=== PATIENT | female | born 1950 | race Caucasian/White ===

== ENCOUNTER 2020-04-16 11:50 | Observation (INO) | payer MEDICARE, OTHER, SELFPAY ==
[2020-04-16] VITALS (10 sets, daily range): BP systolic 137–186; BP diastolic 57–92; PULSE 57–84; RESP 18; TEMP 36.7–36.9; O2SAT 94–100; BMI 32.3; BMI 32.4
--- NOTE | 2020-04-16 12:21 | CA_ITS ---
APPROVED REPORT Left Lower Extremity Venous Study for DVT. 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 Vein Imaging CFV (R): compressive, spontaneous, phasic, augmentation SFJ (R): compressive, spontaneous, phasic, augmentation FEM (R): compressive, spontaneous, phasic, augmentation POP (R): compressive, spontaneous, phasic, augmentation DFV (R): compressive, spontaneous, phasic, augmentation PTV (R): compressive, spontaneous, phasic, augmentation GSV (R): compressive, spontaneous, phasic, augmentation SSV (R): compressive, spontaneous, phasic, augmentation Peroneals (R):compressive, spontaneous, phasic, augmentation GAS (R): compressive, spontaneous, phasic, augmentation Findings LLE negative for DVT/SVT. Vessels compressible Conclusion LLE negative for DVT/SVT. Vessels compressible Electronically signed by : Salvador Goodrich MD 04/16/2020 15:39:41
--- NOTE | 2020-04-16 12:22 | PC.NURSE ---
notified CV lab of doppler order, spoke with ilsa
--- NOTE | 2020-04-16 13:04 | PC.NURSE ---
CV lab staff at
--- NOTE | 2020-04-16 13:30 | CT_ITS ---
Procedure: CT ANGIO LE BI CLINICAL HISTORY: purple or necrotic toe Post syndrome COMPARISON: No exams were available for comparison TECHNIQUE: IV Contrast: 100ml Optiray 350 Axial images obtained with sagittal and coronal reformats. All CT scans at the facility use one or more dose reduction, viz: automated exposure control, ma/kV adjustment per patient size (including targeted exams where dose is matched to indication, i.e. head), or iterative reconstruction technique. FINDINGS: There are atheromatous changes involving the abdominal aorta with mild dilatation the aorta at the L3 level measuring up to 2.4 cm. Is luminal irregularity from the atheromatous change. No significant stenosis of the common or external iliac arteries. Atheromatous changes are present. The left common femoral artery is unremarkable. There is occlusion of the proximal aspect of the left superficial femoral artery. The left femoral profundus is patent. No significant stenosis of the right superficial femoral artery or common femoral artery. There is reconstitution of the proximal aspect of the left proper popliteal artery with 3 vessel runoff on the left to the ankle. The runoff vessels on the right are not well demonstrated distally possibly due to the phase of contrast enhancement. Three-vessel runoff is present proximally in the right calf. Severe mild plaque is present at the ostium of the superior mesenteric artery with severe stenosis or occlusion of the proximal aspect of the SFA. There is a single right renal artery with 30 percent stenosis proximally from calcific plaque. Single left renal artery is unremarkable. The IVETTE is fairly prominent vessel. Collateral vessels noted from the IVETTE to the branches of the SMA. There is a small umbilical hernia containing fat. There is a moderate amount of retained colonic feces with colonic diverticulosis. Artifact is present from metallic fusion devices in the right SI joint. There are venous collaterals in the inguinal areas and gluteal region. IMPRESSION: 1. Occluded left superficial femoral artery with reconstitution of the proximal aspect of the left popliteal artery with three-vessel runoff to the ankle on the left 2. Mild dilatation of the abdominal aorta measuring up to 2.4 cm with some irregularity of the plaque within the aorta. 3. Severe stenosis versus occlusion of the SMA with collateral vessels from the IVETTE. Dictated by: Salvador Goodrich MD 04/16/2020 15:04 Salvador Goodrich MD in [place] 04/16/2020 15:04
[2020-04-16 13:59] LABS: Alanine Aminotransferase 28 U/L (12-78); Albumin Level 4.1 g/dl (3.5-5.0); Albumin/Globulin Ratio 1.4 (1.1-1.8); Alkaline Phosphatase 195 U/L (38-126); Anion Gap 10.7 mEq/L (5-15); Aspartate Amino Transferase 32 U/L (14-36); Bilirubin,Total 0.9 mg/dl (0.2-1.3); Blood Urea Nitrogen 8 mg/dl (7-17); Calcium 9.6 mg/dl (8.4-10.2); Carbon Dioxide 28 mmol/L (22.0-30.0); Chloride 103 mmol/L (98-107); Creatinine Clearance Estimated 78 mL/min (50-200); Estimated Glomerular Filt Rate 123 ml/min (>60); GFR (African American) 149 ML/MIN (>60); Glucose 128 mg/dl (74-100); Potassium 3.7 mmoL/L (3.5-5.1); Sodium 138 mmol/L (136-145); Total Protein,Serum 7.1 g/dl (6.3-8.2)
[2020-04-16 14:04] LABS: C-Reactive Protein 20.9 mg/L (0-4)
[2020-04-16 14:11] LABS: Basophils % 0.5 % (0.1-2.0); Eosinophils % 0.4 % (0.1-12.0); Hematocrit 44.7 % (37.0-47.0); Hemoglobin 14.8 g/dL (12.2-16.2); Lymphocytes # 1.8 K/mm3 (0.7-4.5); Lymphocytes % 21.6 % (10-50); Mean Corpuscular HGB Conc 33.2 g/dL (31.8-35.4); Mean Corpuscular Hemoglobin 32.7 pg (27.0-31.2); Mean Corpuscular Volume 98.3 fl (81-99); Mean Platelet Volume 7.7 fl (7.4-10.4); Monocytes # 0.4 K/mm3 (0.1-1.0); Monocytes % 4.9 % (1.7-9.3); Neutrophils % 72.6 % (37.0-80.0); Platelet Count 273 K/mm3 (142-424); Red Blood Count 4.54 M/mm3 (4.20-5.40); Red Cell Distribution Width 13.7 % (11.5-17.5); White Blood Count 8.3 K/mm3 (4.8-10.8)
[2020-04-16 14:19] LABS: Coronavirus 19 IgG Antibody Negative (Negative); Coronavirus 19 IgM Antibody Negative (Negative)
[2020-04-16 14:46] LABS: Erythrocyte Sedimentation Rate 35 mm/hr (0-30)
--- NOTE | 2020-04-16 14:51 | PC.NURSE ---
Follow up appointment made for tomorrow, 04/17/20 at 3:00pm, with Dr Pizarro, per Dr Ojeda request
--- NOTE | 2020-04-16 15:56 | PC.NURSE ---
Dr Pizarro paged.
--- NOTE | 2020-04-16 15:58 | PC.NURSE ---
Dr Pizarro returned call.
--- NOTE | 2020-04-16 16:04 | HMH.PHAHEP ---
[facility] Pharmacy Heparin Dosing - Demographic Data Admission date:: 04/16/20 Date: 04/16/20 Time: 16:04 Allergies/Adverse Reactions: Allergies Allergy/AdvReac Type Severity Reaction Status Date / Time Sulfa (Sulfonamide Allergy Intermediate Rash Verified 04/16/20 16:13 Antibiotics) diazepam Allergy Unknown Unknown Verified 04/16/20 16:13 allergy reaction sulfacetamide Allergy Unknown Unknown Verified 04/16/20 16:13 allergy reaction Height: 1.68 m Weight: 90.718 kg - Indication Medication therapy:: Heparin Patient Problems: Current Active Problems Femoral artery occlusion, left (Acute) Class 1 obesity with body mass index (BMI) of 32.0 to 32.9 in adult (Acute) HTN (hypertension) (Acute) CRP elevated (Acute) ESR raised (Acute) Ischemic ulcer of toe of left foot (Acute) Nail dystrophy (Acute) CVA?: No Bleeding problem?: No Kidney disease?: No IA?: No Desired PTT range:: 50-70 seconds Comments:: Occluded left superficial femoral artery Severe stenosis versus occlusion of the SMA with collateral vessels from the IVETTE. - Labs Anticoagulation Lab Results:: 04/16/20 13:40 Hgb 14.8 Hct 44.7 Plt Count 273 - Monitoring Dose Monitor 1 Date: 04/16/20 Time: 16:05 PTT Result:: PTT 25.8 Infusion Rate:: HEPARIN 1300 UNITS/HR (26 ML/HR) Comment:: HEPARIN 5000 UNIT IV BOLUS Dose Monitor 2 Date: 04/16/20 Time: 22:05 PTT Result:: PTT 40.2 Infusion Rate:: HEPARIN 1450 UNITS/HR (29 ML/HR) Dose Monitor 3 Date: 04/17/20 Time: 04:40 PTT Result:: PTT 49.5 Infusion Rate:: HEPARIN 1500 UNITS/HR (30 ML/HR) Dose Monitor 4 Date: 04/17/20 Time: 11:00 PTT Result:: PTT 47.7 Infusion Rate:: HEPARIN 1600 UNITS/HR (32 ML/HR) Comment:: PATIENT DOWN IN SECURITIES CLERK FOR RUN OFF X2. Dose Monitor 5 Date: 04/17/20 Time: 19:00 PTT Result:: PTT 54.6 Infusion Rate:: HEPARIN 1600 UNITS/HR (32 ML/HR) Comment:: PATIENT ALSO STARTED ON INTEGRILIN DRIP AT 5.6 ML/HR WITH 8.5 ML BOLUS FROM BOTTLE. Dose Monitor 6 Date: 04/18/20 Time: 02:00 PTT Result:: PTT 58.1 Infusion Rate:: HEPARIN 1600 UNITS/HR (32 ML/HR) + INTEGRILIN DRIP Dose Monitor 7 Date: 04/18/20 Time: 06:00 PTT Result:: PTT 59.9 Infusion Rate:: HEPARIN 1600 UNITS/HR (32 ML/HR) - Core Measures Is INR > or = 2 at discharge?: No Most Recent Labs:: Laboratory Results - last 24 hr 04/16/20 13:40: WBC 8.3, RBC 4.54, Hgb 14.8, Hct 44.7, MCV 98.3, MCH 32.7 H, MCHC 33.2, RDW 13.7, Plt Count 273, MPV 7.7, Neut % (Auto) 72.6, Lymph % (Auto) 21.6, Person % (Auto) 4.9, Eos % (Auto) 0.4, Baso % (Auto) 0.5, Neut # (Auto) 6.0, Lymph # (Auto) 1.8, Person # (Auto) 0.4, Eos # (Auto) 0.0, Baso # (Auto) 0.0 04/16/20 13:40: Sodium 138, Potassium 3.7, Chloride 103, Carbon Dioxide 28, Anion Gap 10.7, BUN 8, Creatinine 0.50 L, Estimated Creat Clear 78, Estimated GFR 123, Est GFR ( Amer) 149, Glucose 128 H, Calcium 9.6, Total Bilirubin 0.9, AST 32, ALT 28, Alkaline Phosphatase 195 H, C-Reactive Protein 20.9 H, Total Protein 7.1, Albumin 4.1, Globulin 3.0, Albumin/Globulin Ratio 1.4 04/16/20 13:40: ESR 35 H 04/16/20 13:40: SARS-CoV-2 IgG Ab (Rapid) Negative, SARS-CoV-2 IgM Ab (Rapid) Negative Were Heparin and Warfarin started on the same day?: No Comments:: HEPARIN STOPPED THIS AM ALONG WITH INTEGRILIN. WARFARIN NOT STARTED. PATIENT WILL BE DISCHARGE ON PLAVIX AND ASPIRIN ONLY PER MD NOTE.
--- NOTE | 2020-04-16 16:22 | PC.NURSE ---
Per Shaun Hunt, Pharmacy pt is to have a PTT drawn after 6 hours after heprin administration.
--- NOTE | 2020-04-16 16:29 | HMH.EDGENADL ---
ED Disposition Clinical Impression: Femoral artery occlusion, left Disposition: Admitted as Observation Condition on Discharge: Good - Critical Care Critical Care Time: No Attestation: On 04/16/20, the high probability of a clinically significant, sudden or life threatening deterioration of the following system(s) required my full and direct attention, intervention and personal management. The time I documented below is in addition to time spent performing reported procedures but includes the following listed in this critical care notation. Medical Decision Making - Medical Records Medical records reviewed: Yes: I reviewed the patient's medical records. - Gui Inquiry Pt receiving controlled substance: No Vital Signs: 04/16/20 12:02 04/16/20 12:40 04/16/20 14:43 Temperature 98.4 F Temperature Source Oral Pulse Rate [Right Radial] 83 77 58 L Respiratory Rate 18 Blood Pressure [Right Arm] 164/86 H 137/80 183/73 H Blood Pressure Mean [Right Arm] 112 99 109 Blood Pressure Source [Right Arm] Automatic Cuff Automatic Cuff Automatic Cuff Blood Pressure Position [Right Arm] Sitting Sitting Sitting 02 Sat by Pulse Oximetry 98 97 99 Oxygen Delivery Method Room Air Room Air Room Air 04/16/20 15:11 04/16/20 15:48 Temperature Temperature Source Pulse Rate [Right Radial] 58 L 58 L Respiratory Rate Blood Pressure [Right Arm] 168/72 H 143/71 H Blood Pressure Mean [Right Arm] 104 95 Blood Pressure Source [Right Arm] Automatic Cuff Automatic Cuff Blood Pressure Position [Right Arm] Sitting Sitting 02 Sat by Pulse Oximetry 99 99 Oxygen Delivery Method Room Air Room Air - Lab Data Lab results reviewed: Yes: I reviewed the patient's lab results. Lab Results 04/16/20 13:40: WBC 8.3, RBC 4.54, Hgb 14.8, Hct 44.7, MCV 98.3, MCH 32.7 H, MCHC 33.2, RDW 13.7, Plt Count 273, MPV 7.7, Neut % (Auto) 72.6, Lymph % (Auto) 21.6, Cole % (Auto) 4.9, Eos % (Auto) 0.4, Baso % (Auto) 0.5, Neut # (Auto) 6.0, Lymph # (Auto) 1.8, Cole # (Auto) 0.4, Eos # (Auto) 0.0, Baso # (Auto) 0.0 04/16/20 13:40: Sodium 138, Potassium 3.7, Chloride 103, Carbon Dioxide 28, Anion Gap 10.7, BUN 8, Creatinine 0.50 L, Estimated Creat Clear 78, Estimated GFR 123, Est GFR ( Amer) 149, Glucose 128 H, Calcium 9.6, Total Bilirubin 0.9, AST 32, ALT 28, Alkaline Phosphatase 195 H, C-Reactive Protein 20.9 H, Total Protein 7.1, Albumin 4.1, Globulin 3.0, Albumin/Globulin Ratio 1.4 04/16/20 13:40: ESR 35 H 04/16/20 13:40: SARS-CoV-2 IgG Ab (Rapid) Negative, SARS-CoV-2 IgM Ab (Rapid) Negative Result diagrams: 04/16/20 13:40 04/16/20 13:40 Orders (Tests/Meds): ED MEDICATIONS Generic Name Dose Route Start Last Admin Trade Name Freq PRN Reason Stop Dose Admin Heparin Sodium/Dextrose 500 mls @ 26 mls/hr 04/16/20 16:15 04/16/20 16:09 Heparin 25,000 Units In D5w 500ml Premix IV 05/16/20 16:14 26 mls/hr .[id number] SOCORRO Administration 1,300 UNITS/HR Sodium Chloride 10 ml 04/16/20 16:11 Saline Flush 10ml Syringe IV 05/16/20 16:10 NEEDED PRN Maintain IV Site Discontinued Medications Generic Name Dose Route Start Last Admin Trade Name Freq PRN Reason Stop Dose Admin Heparin Sodium (Porcine) 5,000 unit 04/16/20 16:15 04/16/20 16:09 Heparin Sodium 5,000 Units/Ml Vial IV 04/16/20 16:16 5,000 unit ONCE ONE Administration Ioversol 100 ml 04/16/20 14:32 04/16/20 14:32 Rad-Optiray 350 100ml Vial IV 04/16/20 14:33 100 ml ONCE ONE Administration Protocol Morphine Sulfate 4 mg 04/16/20 16:16 04/16/20 16:26 Morphine 4mg/Ml Syringe IV 04/16/20 16:17 4 mg ONCE ONE Administration Ondansetron HCl 4 mg 04/16/20 16:16 04/16/20 16:26 Zofran 4mg/2ml Vial IV 04/16/20 16:17 4 mg ONCE ONE Administration Sodium Chloride 10 ml 04/16/20 14:32 04/16/20 14:33 Rad-Saline Flush 10ml Syringe IV 04/16/20 14:33 10 ml ONCE ONE Administration Sodium Chloride 50 ml
--- NOTE | 2020-04-16 16:33 | PC.NURSE ---
CONSULTED WITH LARA ON HEPARIN GTT
[2020-04-16 16:58] LABS: Activated Partial Thrombo Time 25.8 seconds (23.6-34.0)
--- NOTE | 2020-04-16 17:00 | PC.NURSE ---
report called to kiara hernández rn on second floor
--- NOTE | 2020-04-16 17:43 | PC.NURSE ---
Pt arrived to the floor at this time.
--- NOTE | 2020-04-16 19:37 | PC.NURSE ---
L foot pedal pulse dopplered. Pulse faint but present. CB in reach. States pain improved. NAD at this time. Report given to Katie Hooks RN. Alert and oriented. IV changed to RAC and heparin gtt infusing 26 ml/hr.
[2020-04-16 22:38] LABS: Activated Partial Thrombo Time 40.2 seconds (23.6-34.0)
--- NOTE | 2020-04-16 22:39 | PC.NURSE ---
SPOKE WITH Magi POTTER, PHARMACIST IN REGARDS TO PTT RESULTS AND HEPARIN GTT. Magi POTTER INSTRUCTED THIS RN TO INCREASE RATE OF HEPARIN GTT TO 1450 UNITS/HR AND TO OBTAIN SCHEDULED PTT 6 HOURS FROM NOW.
[2020-04-17] VITALS (28 sets, daily range): BP systolic 124–186; BP diastolic 67–97; PULSE 50–77; RESP 15–20; TEMP 36.6–37.2; O2SAT 92–98; BMI 32.6; BMI 32.5
--- NOTE | 2020-04-17 | IR_ITS ---
APPROVED REPORT Patient Location: [facility] Physical Optics Teacher: DG Issa RT (R) PROCEDURES Right radial arterial access Catheter placement in the left superficial femoral artery Left superficial femoral artery angiography with unilateral runoff to the left foot INDICATION Suspected acute thrombosis, Cold left foot Informed consent was obtained prior to the procedure. COMPLICATIONS None Estimated Blood Loss: less than 10 ml TECHNIQUE 1% lidocaine used anesthetize the right anterior aspect of the right wrist. The right radial artery was accessed via the Salinger technique and a 6 Albanian hydrophilic sheath was placed in the right radial artery. An arterial cocktail was administered using heparin lidocaine verapamil and nitroglycerin. Under fluoroscopic guidance a PV multi-curve was advanced into the left superficial femoral artery where angiography was performed with unilateral runoff to the left foot. At the end of the procedure the apparatus was removed the sheath was removed and hemostasis was achieved using TR banding patient was transferred to the postop holding in stable condition ANGIOGRAPHIC RESULTS The left superficial femoral artery has a stent in the proximal segment. There appears to be a small concentric thrombus in its proximal segment. There is excellent stent apposition. The stent is widely patent into the popliteal artery. Distally there is three-vessel runoff. The anterior tibialis artery is smaller and appears to taper at the left foot with no clear-cut abrupt angulation suggesting thrombosis. The posterior tibialis artery does supply the left foot and the peroneal artery is patent just proximal to the left foot. IMPRESSION Small thrombus in the proximal superficial femoral artery Peripheral artery disease as described above PLAN 1. Start patient on Integrilin drip for the next 18 hours 2. Continue current therapy including low-dose heparin drip to be dosed by pharmacy Electronically signed by : Solo Pizarro, 04/17/2020 15:35:21
--- NOTE | 2020-04-17 | IR_ITS ---
APPROVED REPORT Patient Location: [facility] Contractor: DG Issa RT (R) PROCEDURES Catheter placement in the left popliteal artery Left popliteal artery selective antegrade angiogram Angioplasty and bare-metal stent deployment throughout the left superficial femoral artery and left popliteal artery INDICATION Acute left superficial femoral artery and left popliteal artery atherosclerosis/thrombosis, Cold left cyanotic left foot with limb threatening ischemia Informed consent was obtained prior to the procedure. COMPLICATIONS NONE Estimated Blood Loss: LESS THAN 10 ML TECHNIQUE 1% lidocaine used anesthetize the right groin the right femoral artery was accessed via the Salinger technique and a 6 Greenlandic sheath was placed in the right femoral artery. A wire was advanced into the abdominal aorta and the short 6 Greenlandic sheath was removed and a destination sheath was advanced along with a rim catheter. The rim catheter was used to cannulate the left common iliac artery and an advantage wire was advanced down into the profunda femoris artery. Under fluoroscopic guidance the sheath was advanced into the distal left common femoral artery. Left superficial femoral artery and left popliteal artery selective angiography was performed. Following this therapeutic heparin was administered and an advantage wire was advanced through the acute on chronic occlusion. A trailblazer catheter was then advanced into the popliteal artery the wire was removed and angiography was performed to demonstrate patency of the left popliteal artery. Following this a 6 mm x 150 mm self-expanding stent was deployed in the left popliteal artery extending into the superficial femoral artery. An additional 6 mm x 150 mm self-expanding EV 3 stent was deployed proximal to the first stent yet still overlapping it. An additional 7 mm x 120 mm EV 3 self-expanding stent was then placed proximal to the stent yet still overlapping it. This landed into the very proximal left superficial femoral artery. A 5 mm x 200 mm balloon was deployed at 1216 and then 20 luis up and down the popliteal artery and superficial femoral artery. A 6 mm x 20 mm balloon was then deployed at 16 luis in the very proximal portion of the left superficial femoral artery to further post dilate the stent. There were additional 14 luis inflations in the proximal SFA. After achieving excellent angiographic results the closing ACT was 272 seconds. The apparatus was removed the groin was reprepped gloves were changed sheath was removed there Perclose device was unable to capture the artery therefore manual pressure was initially held followed by a FemoStop. No hematoma occurred and excellent hemostasis was achieved. Patient was transferred to the postop holding in stable condition ANGIOGRAPHIC RESULTS The left superficial femoral artery is proximally occluded and occluded throughout the entire vessel and then reconstitutes at the mid popliteal artery at the pre-geniculate level. 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 Plavix and aspirin for 1 month then discontinue Plavix and add Xarelto 2.5 twice daily 2. LDL less than 55 3. Risk factor modification Electronically signed by : Solo Pizarro, 04/17/2020 13:25:35
--- NOTE | 2020-04-17 02:27 | PC.NURSE ---
A&OX3. ENGINEERING TECHNICIAN EQUAL BILAT. LUNGS CLEAR T/O AUSCULTATION. TOLERATED RA WELL THIS SHIFT. ABDOMEN NONDISTENDED, ACTIVE BOWEL SOUNDS, SOFT AND NONTENDER PER PALPATION IN ALL QUADS. PULSES +2 NOTED EXCEPT FOR ON LLE/LEFT FOOT SITES. PEDAL PULSE IS REQUIRING TO BE DETECTED PER DOPPLER T/O SHIFT. ON INITIAL ASSESSMENT LEFT FOOT WAS NOTED COOL PER PALPATION, PURPLE/ SARA COLORATION ON LEFT GREAT TOE. ON REASSESSMENT OF LEFT FOOT AND LEFT PEDAL PULSE THAT WAS PERFORMED AT 0220, LEFT FOOT NOTED WARM PER PALPATION, COLORATION REMAINS THE SAME INITIAL ASSESSMENT. CAP REFILL >3 SEC NOTED TO LEFT TOES (UNCHANGED FROM INITIAL ASSESSMENT.) BRUISING NOTED TO RIGHT HIP. PT HAS REPORTED PAIN THIS SHIFT IN RIGHT HIP AND LEFT FOOT/TOE. MEDICATED PT PER MAR WITH PRN MORPHINE, ON REASSESSMENT PT REPORTS PAIN BEING AT A TOLERABLE LEVEL. 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 PT REQUESTED STAFF TO OBTAIN URINE SAMPLE DUE TO URINE HAVING AN ODOR , URINE WAS NOTED CLEAR AND YELLOW. SAMPLE WAS OBTAINED AND LAB IS SAVING SPECIMEN IN CASE MD WOULD LIKE TO TEST URINE. AMBULATED TO AND FROM BATHROOM WITH SBA AND USE OF ROLLING WALKER, PT TOLERATED WELL. HEPARIN GTT TITRATED ACCORDING TO PHARMACY RECOMMENDATIONS THIS SHIFT, CURRENTLY INFUSING 29ML/HR. VSS. WILL CONTINUE TO MONITOR.
[2020-04-17 05:08] LABS: Activated Partial Thrombo Time 49.5 seconds (23.6-34.0)
--- NOTE | 2020-04-17 05:09 | PC.NURSE ---
Magi POTTER, PHARMACIST CALLED AND INSTRUCTED THIS RN TO INCREASE HEPARIN GTT TO 1500 UNITS/HR AND TO OBTAIN ANOTHER PTT LAB DRAW 6 HOURS FROM NOW. GTT INCREASED, ORDER PLACED FOR LAB DRAW AT 1100 ON 04/17.
--- NOTE | 2020-04-17 07:42 | HMH.PHAVTE ---
[facility] Pharmacy VTE Monitoring - Patient Demographics Admission date: 04/16/20 Report Date: 04/17/20 Time: 07:42 Allergies/Adverse Reactions: Patient Allergies Sulfa (Sulfonamide Antibiotics) Allergy (Intermediate, Verified 04/16/20 16:13) Rash diazepam Allergy (Unknown, Verified 04/16/20 16:13) Unknown allergy reaction sulfacetamide Allergy (Unknown, Verified 04/16/20 16:13) Unknown allergy reaction Height: 1.68 m Weight: 92.108 kg Patient Problems: Current Active Problems Femoral artery occlusion, left (Acute) - VTE Risk Labs: VTE Related Lab Results Hgb 14.8 g/dL (12.2-16.2) 04/16/20 13:40 Hct 44.7 % (37.0-47.0) 04/16/20 13:40 Plt Count 273 K/mm3 (142-424) 04/16/20 13:40 APTT 49.5 seconds (23.6-34.0) H D 04/17/20 04:40 BUN 8 mg/dl (7-17) 04/16/20 13:40 Creatinine 0.50 mg/dl (0.52-1.04) L 04/16/20 13:40 Estimated Creat Clear 78 mL/min (50-200) 04/16/20 13:40 Was VTE Risk Assessment Performed: Yes VTE Score: 3 VTE Risk Level: Low Risk Clinical Trial Participant: No - Prophylaxis VTE Prophylaxis Ordered?: Yes Types of VTE Prophylaxis: TEDS Knee High, Pharmacological Pharmacologic Type: Heparin
--- NOTE | 2020-04-17 08:04 | HMH.PHAINT ---
HOME MEDICATIONS RECONCILED FROM RX BOTTLES.
[2020-04-17 08:56] LABS: Basophils # 0.1 K/mm3 (0-0.2); Basophils % 0.7 % (0.1-2.0); Eosinophils # 0.1 K/mm3 (0.0-0.4); Eosinophils % 1.4 % (0.1-12.0); Hematocrit 44.8 % (37.0-47.0); Lymphocytes # 2.7 K/mm3 (0.7-4.5); Lymphocytes % 38.6 % (10-50); Mean Corpuscular HGB Conc 33.6 g/dL (31.8-35.4); Mean Corpuscular Volume 98.4 fl (81-99); Mean Platelet Volume 7.4 fl (7.4-10.4); Monocytes # 0.4 K/mm3 (0.1-1.0); Monocytes % 5.2 % (1.7-9.3); Neutrophils # 3.7 K/mm3 (1.8-7.8); Neutrophils % 54.2 % (37.0-80.0); Platelet Count 297 K/mm3 (142-424); Red Blood Count 4.55 M/mm3 (4.20-5.40); Red Cell Distribution Width 13.6 % (11.5-17.5); White Blood Count 6.9 K/mm3 (4.8-10.8)
--- NOTE | 2020-04-17 09:00 | HMH.HP ---
*Admission Date: 04/16/20 *History of present illness: 69-year-old female patient presented to the emergency department with left lower extremity pain, she does report a history of blood clots and believes that is her problem presently. She reports she was at [facility] in [place] for a surgical procedure involving a titanium plate placed in her pelvis to relieve her sciatic nerve pain. She states 4 days prior she began having a throbbing pain in her left foot pain has continued and increased to intolerable presently. In the emergency room pulses on left foot were present with Doppler only and left great toe was purplish in color. She denies fever/body aches/chills, shortness of breath, N/V/D, or chest pain. Heparin drip was started in ED CBC unremarkable, BUN 8, creatinine 0.5, ESR 35, phosphate 195, C-reactive protein 20.9 Extremity Doppler 04/16/2020: Conclusion LLE negative for DVT/SVT. Vessels compressible Left lower extremity CTA 04/16/2020: FINDINGS: There are atheromatous changes involving the abdominal aorta with mild dilatation the aorta at the L3 level measuring up to 2.4 cm. Is luminal irregularity from the atheromatous change. No significant stenosis of the common or external iliac arteries. Atheromatous changes are present. The left common femoral artery is unremarkable. There is occlusion of the proximal aspect of the left superficial femoral artery. The left femoral profundus is patent. No significant stenosis of the right superficial femoral artery or common femoral artery. There is reconstitution of the proximal aspect of the left proper popliteal artery with 3 vessel runoff on the left to the ankle. The runoff vessels on the right are not well demonstrated distally possibly due to the phase of contrast enhancement. Three-vessel runoff is present proximally in the right calf. Severe mild plaque is present at the ostium of the superior mesenteric artery with severe stenosis or occlusion of the proximal aspect of the SFA. There is a single right renal artery with 30 percent stenosis proximally from calcific plaque. Single left renal artery is unremarkable. The IVETTE is fairly prominent vessel. Collateral vessels noted from the IVETTE to the branches of the SMA. There is a small umbilical hernia containing fat. There is a moderate amount of retained colonic feces with colonic diverticulosis. Artifact is present from metallic fusion devices in the right SI joint. There are venous collaterals in the inguinal areas and gluteal region. IMPRESSION: 1. Occluded left superficial femoral artery with reconstitution of the proximal aspect of the left popliteal artery with three-vessel runoff to the ankle on the left 2. Mild dilatation of the abdominal aorta measuring up to 2.4 cm with some irregularity of the plaque within the aorta. 3. Severe stenosis versus occlusion of the SMA with collateral vessels from the IVETTE. Dictated by: Kp, Presently she is lying in bed respirations easy even she denies any shortness of breath or chest pain. Left pedal pulses obtained with Doppler, left great toe is purplish in color and painful to touch. Cardiology consult [facility] History Medical History: Reports:: Hypertension Denies:: Diabetes Mellitus Type 1, Diabetes Mellitus Type 2, MRSA *Have you ever received a pneumonia vaccine?: Yes *Have you received a flu vaccine this season?: No Other Surgeries: Yes: Cholecystectomy, Hysterectomy-Total - *Social History Last grade of school completed: Some college Smoking Status: Former smoker # Packs/Day (cigarettes): 1 #Yrs smoked (if former smoker): 45 Alcohol Intake: never Alcohol Intake Frequency:: holidays/special occasions only Substance Use Type: denies use *Occupational Status:: retired, disabled *Travel in the last 8 weeks: None Family Hx:: No significant family history Review of Systems - Review of Systems Review of systems:: pertinent
[2020-04-17 09:09] LABS: Chloride 105 mmol/L (98-107); Sodium 139 mmol/L (136-145)
[2020-04-17 09:13] LABS: Blood Urea Nitrogen 8 mg/dl (7-17); Calcium 9.6 mg/dl (8.4-10.2); Carbon Dioxide 27 mmol/L (22.0-30.0); Creatinine Clearance Estimated 79 mL/min (50-200); Estimated Glomerular Filt Rate 123 ml/min (>60); GFR (African American) 149 ML/MIN (>60); Glucose 118 mg/dl (74-100)
[2020-04-17 11:20] LABS: Activated Partial Thrombo Time 47.7 seconds (23.6-34.0)
--- NOTE | 2020-04-17 11:45 | PC.NURSE ---
Pt down to labview programmer at approx 1115. Pt is alert and oriented and able to make need known. RR even and unlabored. Did change dsg to R hip this am after cleaning to surg incision. No s/s infection. Did doppler L pedal pulse, r/t unable to palpate this am. Toe continues to be discolored, cool and tender to touch. Awaiting return to floor at this time. Heparin gtt per oct continued prior to labview programmer.
--- NOTE | 2020-04-17 12:03 | HMH.CNCARD ---
History of Present Illness Consult date: 04/17/20 Requesting physician: Sam Ojeda Chief complaint: Occlusion of the left femoral artery Additional Medical History:: 1. Occluded left SFA with reconstitution of the proximal aspect of the left popliteal artery with three-vessel runoff to the ankle on the left. (04/17/2020) a. Complains of left foot pain. b. Discoloration of the left foot. 2. Hypertension a. Pt stated that she does not take medication regularly. 3. History of DVT (2008) 4. History of tobacco abuse a. Quit smoking 3 weeks ago. History of present illness: 69 year old female admitted to [facility] for Occluded left superficial femoral artery. Pt stated that for the past few days she has been having increase severe pain of the left leg radiating down to the foot. Left great toe noted with purple discoloration. One week ago, pt underwent a procedure at [facility] in [place], [place] to have titanium patch across the sciatic nerve to help alleivate the sciatic nerve pain. Pt denies chest pain, tightness or pressure. Denies shortness of breath. No swelling of the lower extremities. Pt stated limited movement of the left leg and foot due to severe pain. Pt does have history of Hypertension. History of DVT (2008). Ex tobacco user. Quit smoking 3 weeks ago. Initial ED workup was performed. CBC unremarkable. Creatinine 0.50, C-Reactive protein 20.9, and ESR 35 (elevated). CTA of LE BI was performed. CTA revealed occluded left superficial artery with reconstitution of the proximal aspect of the left popliteal artery with three-vessel runoff to the ankle of the left. Pt is on a Heparin drip. Discussed plan of care with pt. Recommended Bilateral lower extremity runoff be performed due to the occlusion of the left SFA. Explained the risk and benefits of the runoff. Pt agreeable. Discussed case with Dr. Pizarro. Thank you for letting Cardiology participate in the care of this pt. [facility] History I have reviewed the patient's past medical history: Yes Medical History: Reports:: Hypertension Denies:: Diabetes Mellitus Type 1, Diabetes Mellitus Type 2, MRSA *Have you ever received a pneumonia vaccine?: Yes *Have you received a flu vaccine this season?: No Other Surgeries: Yes: Cholecystectomy, Hysterectomy-Total - *Social History Last grade of school completed: Some college Smoking Status: Former smoker # Packs/Day (cigarettes): 1 #Yrs smoked (if former smoker): 45 Alcohol Intake: never Alcohol Intake Frequency:: holidays/special occasions only Substance Use Type: denies use *Occupational Status:: retired, disabled *Travel in the last 8 weeks: None Family Hx:: No significant family history Meds Home Medications Medication Instructions Recorded Confirmed Type Amlodipine Besylate [Amlodipine 5 mg PO BID 04/16/20 04/17/20 History 10mg Tab] Cyclobenzaprine HCl 10 mg PO BID PRN 04/16/20 04/17/20 History [Cyclobenzaprine 10mg Tab] Hydrocodone/Acetaminophen 1 tab PO TID PRN 04/16/20 04/17/20 History [Hydrocodone-Acetamin 10-325 mg] Allergies Allergy/AdvReac Type Severity Reaction Status Date / Time Sulfa (Sulfonamide Allergy Intermediate Rash Verified 04/16/20 16:13 Antibiotics) diazepam Allergy Unknown Unknown Verified 04/16/20 16:13 allergy reaction sulfacetamide Allergy Unknown Unknown Verified 04/16/20 16:13 allergy reaction Exam Vital signs and Labs for Last 24 Hours: Temp Pulse Resp BP Pulse Ox 97.9 F 60 20 139/97 H 97 04/17/20 07:19 04/17/20 07:19 04/17/20 07:19 04/17/20 07:19 04/17/20 07:19 Laboratory Results - last 24 hr 04/16/20 13:40: WBC 8.3, RBC 4.54, Hgb 14.8, Hct 44.7, MCV 98.3, MCH 32.7 H, MCHC 33.2, RDW 13.7, Plt Count 273, MPV 7.7, Neut % (Auto) 72.6, Lymph % (Auto) 21.6, [place] % (Auto) 4.9, Eos % (Auto) 0.4, Baso % (Auto) 0.5, Neut # (Auto) 6.0, Lymph # (Auto) 1.8, [place] # (Auto) 0.4, Eos # (Auto) 0.0, Baso # (Auto) 0.0 04/16/20 13:4
[2020-04-17 14:33] LABS: Microscopic, Urine URINE MICROSCOPIC (MICROSCOPIC)
[2020-04-17 14:37] LABS: Appearance,Urine CLEAR (Clear); Bilirubin,Urine Negative (Negative); Blood, Urine Negative (Negative); Color,Urine YELLOW (Yellow); Glucose,Urine (UA) Negative (Negative); Ketones,Urine Negative (Negative); Leukocyte Esterase,Urine Negative (Negative); Nitrate,Urine Negative (Negative); PH,Urine 6.5 (5.0-8.5); Protein,Urine Negative (Negative); Specific Gravity, Urine <= 1.005 (1.005-1.030); Urobilinogen,Urine 0.2 EU/dl (0.2)
[2020-04-17 14:48] LABS: Squamous Epithelial Cell,Urine Occasional #/hpf (0-5)
--- NOTE | 2020-04-17 16:03 | SUR.PHASEII ---
pt doing well after 2nd procedure. stable, no issues.
--- NOTE | 2020-04-17 16:09 | PC.NURSE ---
Addendum entered by Santiago Robertson RN 04/17/20 16:10: Pt still in phlebotomy lab assistant at this time. Original Note: Have given report to Raina Kaminski RN.
[2020-04-17 16:32] LABS: CATHL Activated Clotting Time 272 SEC (74-125)
--- NOTE | 2020-04-17 17:01 | PC.NURSE ---
per laborer carpentry dock, they ordered per protocol for integralin drip.
--- NOTE | 2020-04-17 19:04 | PC.NURSE ---
report given to bharat
[2020-04-17 19:37] LABS: Activated Partial Thrombo Time 54.6 seconds (23.6-34.0)
--- NOTE | 2020-04-17 19:46 | PC.NURSE ---
INSTRUCTED PER Magi POTTER, PHARMACIST TO KEEP THE HEPARIN AT CURRENT DOSE R/T PTT RESULTS. HEPARIN IS INFUSING AT 32 ML/HR.
[2020-04-18] VITALS (15 sets, daily range): BP systolic 103–169; BP diastolic 58–95; PULSE 54–90; RESP 16–18; TEMP 36.7–36.9; O2SAT 91–99; BMI 32.5
--- NOTE | 2020-04-18 01:00 | PC.NURSE ---
INTEGRILIN GTT STOPPED AT THIS TIME PER MD INSTRUCTIONS.
[2020-04-18 02:21] LABS: Activated Partial Thrombo Time 58.1 seconds (23.6-34.0)
--- NOTE | 2020-04-18 02:22 | PC.NURSE ---
Magi POTTER, PHARMACIST CALLED THIS RN AND INSTRUCTED TO KEEP HEPARIN GTT AT THE CURRENT RATE THAT IT IS INFUSING R/T PTT LAB RESULTS. 32ML/HR INFUSING.
--- NOTE | 2020-04-18 04:26 | PC.NURSE ---
A&OX3. OPERATIONS RESEARCH SCIENTIST EQUAL BILAT. LUNGS NOTED CLEAR T/O AUSCULTATION. TOLERATED RA WELL. ABDOMEN NOTED NONDISTENDED, ACTIVE BOWEL SOUNDS IN ALL QUADS, SOFT AND NONTENDER ABDOMEN. PT DID REQUEST STOOL SOFTNER AT 0313 THIS MORNING, REASSURED PT THAT WOULD BE ADDRESSED ON MORNING ROUNDS. PULSES +2. RIGHT RADIAL TRACELET HAS REMAINED ON THIS SHIFT R/T UNSUCCESSFUL ATTEMPTS OF REMOVAL. ON THE 15 MIN REASSESSMENTS OF ATTEMPTING TO DEFLATE AIR FROM TRACELET, BLOODY OOZING/TRICKLING NOTED TO RIGHT RADIAL SITE, PER INSTRUCTIONS 4ML REINFLATED THE TRACELET. MD WAS MADE AWARE AT 0056 AND INSTRUCTED TO HOLD INTEGRILIN GTT FOR 5 HOURS AND TO LEAVE THE TRACELET FOR 4 MORE HOURS, THEN ATTEMPT TO REMOVE. WILL ATTEMPT TO DEFLATE TRACELET AND BEGIN REMOVAL PROCESS AT 0500. RIGHT HAND HAS REMAINED WARM PER PALPATION, CAP REFILL <3 SEC, RIGHT HAND PINK IN COLORATION. RIGHT FEMORAL SITE NOTED WITH WITH A DRESSING WITH MINIMAL DRIED BLOOD THAT WAS UNCHANGED FROM DAY SHIFT, SOFT PER PALPATION, FREE FROM HEMATOMA. LEFT FOOT NOTED WITH SARA DISCOLORATION LEFT GREAT TOE NOTED PURPLE IN COLOR, LEFT FOOT REMAINED WARM PER PALPATION, PEDAL PULSES PALPABLE +2. SINUS ARRHYTHMIA NOTED PER PURCHASING BUYER, WAS TOLD IN REPORT THAT PT HAS REMAINED IN SINUS ARRHYTHMIA SINCE ARRIVAL TO FLOOR FROM MAITRE D'. RIGHT HIP/ RIGHT LOWER PORTION OF BACK NOTED WITH BRUISING, REPORTS PREVIOUS HIP SURGERY. PT REPORTED HAVING LOWER BACK PAIN, DESCRIBED A THROBBING PAIN. DENIED PAIN BEING A DIFFERENT KIND OF PAIN, PT REPORTED NO IT IS THROBBING AND ACHING LIKE IT HAS BEEN. WITH REPOSITIONING AND ADMINISTRATION OF PRN PAIN MEDICATIONS PT REPORTS PAIN IS TOLERABLE OR NOTED RESTING WITH EYES CLOSED . PAIN GOAL IS TO MAINTAIN PAIN LEVEL <5/10 ON 0-10 CUSTOMER SUPPORT AGENT. COOMBS CATHETER IN PLACE PATENT AND DRAINING CLEAR YELLOW URINE. AKASH AREA CDI, NO S/S OF INFECTION NOTED. ADEQUATE UO NOTED. VSS. WILL CONTINUE TO MONITOR.
[2020-04-18 06:34] LABS: Hematocrit 41.9 % (37.0-47.0); Hemoglobin 14.1 g/dL (12.2-16.2)
[2020-04-18 06:41] LABS: Chloride 103 mmol/L (98-107); Potassium 3.6 mmoL/L (3.5-5.1); Sodium 135 mmol/L (136-145)
[2020-04-18 06:44] LABS: Anion Gap 8.6 mEq/L (5-15); Blood Urea Nitrogen 8 mg/dl (7-17); Calcium 9.2 mg/dl (8.4-10.2); Carbon Dioxide 27 mmol/L (22.0-30.0); Creatinine Clearance Estimated 79 mL/min (50-200); Estimated Glomerular Filt Rate 100 ml/min (>60); GFR (African American) 121 ML/MIN (>60); Glucose 113 mg/dl (74-100)
[2020-04-18 07:01] LABS: Activated Partial Thrombo Time 59.9 seconds (23.6-34.0)
--- NOTE | 2020-04-18 07:37 | HMH.PNCARD ---
Subjective Date: 04/18/20 Time: 07:37 Principal diagnosis: Acute SFA occlusion Interval history: 69 yo WF in bed in NAD. Some back discomfort due to being in bed. Left leg without complaints. Leg warm with good DP pulse. Still with some slight purplish discoloration of big toe and second toe. Tracelet removed overnight from right wrist. Good radial pulse with warm fingers. Continues on IV integrilin and heparin gtt. Exam Vital signs and Labs for Last 24 Hours: Temp Pulse Resp BP Pulse Ox 98.2 F 54 L 18 103/60 L 92 L 04/18/20 06:00 04/18/20 06:00 04/18/20 06:00 04/18/20 06:00 04/18/20 06:00 Laboratory Results - last 24 hr 04/17/20 08:48: WBC 6.9, RBC 4.55, Hgb 15.0, Hct 44.8, MCV 98.4, MCH 33.0 H, MCHC 33.6, RDW 13.6, Plt Count 297, MPV 7.4, Neut % (Auto) 54.2, Lymph % (Auto) 38.6, [place] % (Auto) 5.2, Eos % (Auto) 1.4, Baso % (Auto) 0.7, Neut # (Auto) 3.7, Lymph # (Auto) 2.7, [place] # (Auto) 0.4, Eos # (Auto) 0.1, Baso # (Auto) 0.1 04/17/20 08:48: Sodium 139, Potassium 4.0, Chloride 105, Carbon Dioxide 27, Anion Gap 11.0, BUN 8, Creatinine 0.50 L, Estimated Creat Clear 79, Estimated GFR 123, Est GFR ( Amer) 149, Glucose 118 H, Calcium 9.6 04/17/20 10:59: APTT 47.7 H 04/17/20 13:04: Activated Clotting Time 272 H* 04/17/20 14:15: Urine Color Yellow, Urine Appearance Clear, Urine pH 6.5, Ur Specific [place] <= 1.005, Urine Protein Negative, Urine Glucose (UA) Negative, Urine Ketones Negative, Urine Blood Negative, Urine Nitrate Negative, Urine Bilirubin Negative, Urine Urobilinogen 0.2, Ur Leukocyte Esterase Negative, Ur Squamous Epith Cells Occasional 04/17/20 19:10: APTT 54.6 H* D 04/18/20 01:55: APTT 58.1 H* 04/18/20 05:48: APTT 59.9 H* 04/18/20 05:48: Hgb 14.1, Hct 41.9 04/18/20 05:48: Sodium 135 L, Potassium 3.6, Chloride 103, Carbon Dioxide 27, Anion Gap 8.6, BUN 8, Creatinine 0.60, Estimated Creat Clear 79, Estimated GFR 100, Est GFR ( Amer) 121, Glucose 113 H, Calcium 9.2 I & O for Last 24 hours: Intake & Output 04/15/20 04/16/20 04/17/20 04/18/20 11:59 11:59 11:59 11:59 Intake Total 450 / 450 581 / 581 Output Total 700 / 700 2950 / 2950 Balance -250 / -250 -2369 / -2369 Weight 202 lb 13.204 oz 202 lb 9.677 oz - *Routine HEENT Exam Head: Present: normocephalic Eye: Present: EOMI, PERRL ENT: Present: mucous membranes moist - *Routine Respiratory Exam Present: CTA bilaterally - *Routine Cardiovascular Exam Present: RRR - *Routine Extremities Exam Absent: cyanosis, clubbing, edema - *Routine Neurological Exam Present: alert, oriented X3 Progress Note: A&P (1) Femoral artery occlusion, left Status: Acute Current Visit: Yes (2) Class 1 obesity with body mass index (BMI) of 32.0 to 32.9 in adult Status: Acute Current Visit: Yes (3) HTN (hypertension) Status: Acute Current Visit: Yes (4) CRP elevated Status: Acute Current Visit: Yes (5) ESR raised Status: Acute Current Visit: Yes Assessment and Plan for All Diagnoses:: 1. Continue IV Integrilin to finish 18 hrs. 2. Continue IV heparin. 3. Will get PT to help with ambulation due to recent back surgery for sciatic nerve issues. 4. Consult Dr. Fabian for ischemic changes to toes of left foot. 5. Anticipate home later today on ASA 81 mg daily, plavix 75 mg daily, atorvastatin 40 mg daily, norvasc 5 mg BID and lisinopril 20 mg daily. 6. follow up in one week.
--- NOTE | 2020-04-18 08:16 | PC.NURSE ---
Notified specialty clinic of Dr. Fabian consult, spoke with Merna.
--- NOTE | 2020-04-18 08:20 | PC.NURSE ---
PROCESS OF DEFLATING RIGHT RADIAL TRACELET: 0500- 10 ML 0515- 8 ML 0530- 6 ML 0545- 4 ML 0600- 2 ML 0615- 0 ML 0630- TRACELET REMOVED. 2X2 GAUZE AND TEGADERM APPLIED AT THIS TIME. NO BLOOD DRAINAGE NOTED. PULSES +2 PALPATED AT RIGHT RADIAL SITE. RIGHT HAND IS PINK IN COLOR AND WARM PER PALPATION. INTEGRILIN GTT RESTARTED AT THIS TIME.
[2020-04-18 08:42] LABS: INR 1.06 (0.9-1.1); Prothrombin Time 10.9 seconds (9.4-11.8)
--- NOTE | 2020-04-18 09:09 | HMH.ORTHOCON ---
*Admission Date: 04/16/20 *Reason for consult:: Left foot ischemic toes *History of present illness: Mrs Kimball is a 69 yo WF resting comfortably in bed in NAD. Some back discomfort from laying. No pain to left leg. Leg warm with good DP pulse. There is some slight purplish discoloration of left big toe and second toe. Has IV integrilin and heparin gtt. consulted by cardiology to arrange outpatient follow-up for monitoring of the ischemic toes. Patient denies history of ulceration or amputation. [facility] History I have reviewed the patient's past medical history: Yes Medical History: Reports:: Hypertension Denies:: Diabetes Mellitus Type 1, Diabetes Mellitus Type 2, MRSA *Have you ever received a pneumonia vaccine?: Yes *Have you received a flu vaccine this season?: No Other Surgeries: Yes: Cholecystectomy, Hysterectomy-Total - *Social History Last grade of school completed: Some college Smoking Status: Former smoker # Packs/Day (cigarettes): 1 #Yrs smoked (if former smoker): 45 Alcohol Intake: never Alcohol Intake Frequency:: holidays/special occasions only Substance Use Type: denies use *Occupational Status:: retired, disabled *Travel in the last 8 weeks: None Family Hx:: No significant family history Review of Systems - Review of Systems Review of systems:: pertinent systems reviewed and negative unless documented below - Constitutional Denies chills - Eyes Denies blind spots - ENT Denies abnormal hearing - *Cardiovascular Denies chest pain, Denies shortness of breath - *Respiratory Denies shortness of breath - *Gastrointestinal Denies abdominal pain, Denies vomiting - *Genitourinary Denies abnormal periods - *Musculoskeletal Reports back pain, Reports limited joint movement - Integumentary/Breasts Reports change in skin color, Reports dry skin, Denies skin ulcer - *Neurologic Reports abnormal hearing, Reports weakness - Psychiatric Denies abnormal sleep pattern - Endocrine Denies cold intolerance - Hematologic/Lymphatic Reports easy bruising - Allergic/Immunologic Denies wheezing Meds Home Medications Medication Instructions Recorded Confirmed Type Amlodipine Besylate [Amlodipine 5 mg PO BID 04/16/20 04/17/20 History 10mg Tab] Cyclobenzaprine HCl 10 mg PO BID PRN 04/16/20 04/17/20 History [Cyclobenzaprine 10mg Tab] Hydrocodone/Acetaminophen 1 tab PO TID PRN 04/16/20 04/17/20 History [Hydrocodone-Acetamin 10-325 mg] Allergies Allergy/AdvReac Type Severity Reaction Status Date / Time Sulfa (Sulfonamide Allergy Intermediate Rash Verified 04/16/20 16:13 Antibiotics) diazepam Allergy Unknown Unknown Verified 04/16/20 16:13 allergy reaction sulfacetamide Allergy Unknown Unknown Verified 04/16/20 16:13 allergy reaction Exam Vital signs and Labs for Last 24 Hours: Temp Pulse Resp BP Pulse Ox 98.4 F 82 16 169/95 H 98 04/18/20 08:00 04/18/20 08:00 04/18/20 08:00 04/18/20 08:00 04/18/20 08:34 Laboratory Results - last 24 hr 04/17/20 08:48: Sodium 139, Potassium 4.0, Chloride 105, Carbon Dioxide 27, Anion Gap 11.0, BUN 8, Creatinine 0.50 L, Estimated Creat Clear 79, Estimated GFR 123, Est GFR ( Amer) 149, Glucose 118 H, Calcium 9.6 04/17/20 10:59: APTT 47.7 H 04/17/20 13:04: Activated Clotting Time 272 H* 04/17/20 14:15: Urine Color Yellow, Urine Appearance Clear, Urine pH 6.5, Ur Specific [place] <= 1.005, Urine Protein Negative, Urine Glucose (UA) Negative, Urine Ketones Negative, Urine Blood Negative, Urine Nitrate Negative, Urine Bilirubin Negative, Urine Urobilinogen 0.2, Ur Leukocyte Esterase Negative, Ur Squamous Epith Cells Occasional 04/17/20 19:10: APTT 54.6 H* D 04/18/20 01:55: APTT 58.1 H* 04/18/20 05:48: APTT 59.9 H* 04/18/20 05:48: Hgb 14.1, Hct 41.9 04/18/20 05:48: Sodium 135 L, Potassium 3.6, Chloride 103, Carbon Dioxide 27, Anion Gap 8.6, BUN 8, Creatinine 0.60, Estimated Creat Clear 79, Estimated GFR
--- NOTE | 2020-04-18 09:29 | PC.NURSE ---
Pt out of step down at this time. Keke Notified
--- NOTE | 2020-04-18 11:24 | HMH.PTEV ---
Physical Therapy Evaluation Rehab PT IP Evaluation Start: 04/18/20 07:35 Freq: ONCE Status: Active Protocol: Document 04/18/20 11:00 NADIA (Rec: 04/18/20 11:24 NADIA [id number]) Subjective/History History History 69-year-old female patient presented to the emergency department with left lower extremity pain, she does report a history of blood clots and believes that is her problem presently. She reports she was at [facility] in [place] for a surgical procedure involving a titanium plate placed in her pelvis to relieve her sciatic nerve pain. She states 4 days prior she began having a throbbing pain in her left foot pain has continued and increased to intolerable presently. In the emergency room pulses on left foot were present with Doppler only and left great toe was purplish in color. She denies fever/body aches/ chills, shortness of breath, N /V/D, or chest pain. Heparin drip was started in ED. This H&P ccopied from ER documentation Subjective Subjective Pt reports she is limited in RUE lifting due to cath entry at R wrist, 50% wbing RLE due to R SIJ fusion Rehab PT IP Eval Objective Appearance Patient Behavior Appropriate,Cooperative Patient Orientation Person,Place,Time Difficulty following instructions none Speech Pattern Clear,Appropriate,Coherent Ambulation Patient Able to Ambulate Yes Ambulation Observation IP General Gait Pattern Observation Decrease Weight Bear (R), Decrease Stride Lngth (R) Ambulation Distance (feet) 60 Ambulation Assistive Device Rolling Walker Ambulation Ability Supervision/Stand by Balance Ability to Arise Able, uses arms to help Sitting Balance Steady, safe Standing Balance Steady, wide stance Dynamic Sitting Balance Ability Normal Dynamic Standing Balance Ability Fair Transfers Bed Transfer Ability Independent,Supervisi
--- NOTE | 2020-04-18 12:43 | HMH.ACPN2 ---
Internal Medicine - PN: Subj *Date: 04/18/20 *Time: 08:05 Interval history: pt states her back and rt hip pain. Pt states her foot and toes do not hurt anymore. pulses good in feet and small purple dime size area to left great toe. Exam Vital signs and Labs for Last 24 Hours: Temp Pulse Resp BP Pulse Ox 98.1 F 73 18 147/69 H 98 04/18/20 12:00 04/18/20 12:00 04/18/20 12:00 04/18/20 12:00 04/18/20 12:00 Laboratory Results - last 24 hr 04/17/20 13:04: Activated Clotting Time 272 H* 04/17/20 14:15: Urine Color Yellow, Urine Appearance Clear, Urine pH 6.5, Ur Specific [place] <= 1.005, Urine Protein Negative, Urine Glucose (UA) Negative, Urine Ketones Negative, Urine Blood Negative, Urine Nitrate Negative, Urine Bilirubin Negative, Urine Urobilinogen 0.2, Ur Leukocyte Esterase Negative, Ur Squamous Epith Cells Occasional 04/17/20 19:10: APTT 54.6 H* D 04/18/20 01:55: APTT 58.1 H* 04/18/20 05:48: APTT 59.9 H* 04/18/20 05:48: Hgb 14.1, Hct 41.9 04/18/20 05:48: Sodium 135 L, Potassium 3.6, Chloride 103, Carbon Dioxide 27, Anion Gap 8.6, BUN 8, Creatinine 0.60, Estimated Creat Clear 79, Estimated GFR 100, Est GFR ( Amer) 121, Glucose 113 H, Calcium 9.2 04/18/20 05:48: PT 10.9, INR 1.06 I & O for Last 24 hours: Intake & Output 04/16/20 04/17/20 04/18/20 04/19/20 11:59 11:59 11:59 11:59 Intake Total 450 / 450 581 / 581 Output Total 700 / 700 3250 / 3250 Balance -250 / -250 -0419 / -2666 Weight 202 lb 13.204 oz 202 lb 9.677 oz - Constitutional no acute distress - *Routine HEENT Exam Head: Present: normocephalic Eye: Present: PERRL ENT: Present: mucous membranes moist - *Routine Neck Exam Present: supple. Absent: lymphadenopathy - *Routine Respiratory Exam Present: CTA bilaterally - *Routine Cardiovascular Exam Present: RRR - *Routine Abdominal Exam Present: soft, normoactive bowel sounds. Absent: tenderness - *Routine Extremities Exam Present: pulses intact, normal capillary refill. Absent: cyanosis, clubbing, edema Comments: small dime size purple area to left great toe - *Routine Skin Exam Present: intact - *Routine Neurological Exam Present: alert, oriented X3 - Routine Psychiatric Exam Present: normal affect Assessment and Plan (1) Femoral artery occlusion, left Current visit: Yes Status: Acute Category: Medical Code(s): I70.202 - Unspecified atherosclerosis of the [place] arteries of extremities, left leg (2) Class 1 obesity with body mass index (BMI) of 32.0 to 32.9 in adult Current visit: Yes Status: Acute Category: Medical Code(s): E66.9 - Obesity, unspecified; Z68.32 - Body mass index (BMI) 32.0-32.9, adult (3) HTN (hypertension) Current visit: Yes Status: Acute Category: Medical Code(s): I10 - Essential (primary) hypertension (4) CRP elevated Current visit: Yes Status: Acute Category: Medical Code(s): R79.82 - Elevated C-reactive protein (CRP) (5) ESR raised Current visit: Yes Status: Acute Category: Medical Code(s): R70.0 - Elevated erythrocyte sedimentation rate (6) Ischemic ulcer of toe of left foot Current visit: Yes Status: Acute Category: Medical Code(s): L97.529 - Non-pressure chronic ulcer of other part of left foot with unspecified severity (7) Nail dystrophy Current visit: Yes Status: Acute Category: Medical Code(s): L60.3 - Nail dystrophy - Assessment and plan all Dx Assessment and Plan for all problems:: rounded wtih dr howard all orders per dr howard pt for eval
--- NOTE | 2020-04-18 13:21 | SW/DCPLANNER ---
WENT IN TO SEE PATIENT REGARDING DISCHARGE PLANNING: PATIENT WAS SUPPOSE TO DISCHARGE TODAY AND STATED SHE SHE DOES NOT FEELSHE IS SAFE ENOUGH TO RETURN HOME RIGHT NOW... HER DAUGHTER STATED SHE CAN'T STAY WITH HER BECAUSE SHE HAS 4 CHILDREN AND LIVES IN [place] AND [facility] TOO FAR TO TRAVEL TO CHECK ON HER EVERYDAY.. SHE DID STATE SHE CAN GO HOME WITH HER FOR A DAY OR TWO BUT AFTER THAT PATIENT WILL BE ALONE AFTER THAT... I TOLD HER I WOULD TRY TO FIND HER A BED AND SEE IF MEDICARE WILL PAY FOR A SKILLED STAY SINCE SHE WAS OBSERVATION.. I CHECKED WITH [facility] AND [facility] AND NEITHER HAVE ANY BEDS.. I SENT IT TO [facility] AND WAITING TO HEAR BACK.. IF ACCEPTED SHE WILL DISCHARGE THERE [facility] PENDING NO SETBACKS...
--- NOTE | 2020-04-18 14:53 | SW/DCPLANNER ---
Addendum entered by Kimmy Petty 04/19/20 10:07: PATIENT IS DISCHARGING HOME INSTEAD OF THE INTERMEDIATE... SHE HAS REQUESTED HER MEDS BE DELIVERED TO HER ROOM... Addendum entered by Leticia Sanchez 04/19/20 09:38: I have notified Janice with [facility] that this patient will discharge today Original Note: A BED WAS OBTAINED AT [facility] FOR THIS PATIENT... SHE WILL DISCHARGE THERE [facility] AND USE HER [facility] BENEFIT... I EXPLAINED TO JANICE THAT SHE OBS HERE AT [facility] AND JANICE STATED AT THIS POINT THEY CAN USE HER MEDICARE AND THE BENEFIT HAS NOT BEEN LIFTED YET.. I EXPLAINED THIS TO HER DAUGHTER AND PATIENT... THE PLAN IS TO STAY THERE FOR A COUPLE OF WEEKS AND RETURN HOME... D/C [facility] PENDING NO SETBACKS...
--- NOTE | 2020-04-18 18:41 | PC.NURSE ---
Remains on room air. Dressing to (R) radial site c/d/i w/ minimal amount of dry blood around gauze noted. Dressing to (R) groin remains unchanged from prev asessment w/ small amount of serosang drainage. Pt ambulates w/ rolling walker, tolerating activity well. PRN pain meds given per MAR w/ adequate relief noted. Miralax given per MD orders by pt's request, No BM this shift. Clark cath DC'd earlier this shift, pt has voided per commode w/o difficulty. +3 pedal pulses noted to BLE, extremities warm to touch w/ toes able to move freely. Daughter is at bedisde. Plans to DC to [facility] tomorrow. No needs voiced at this time. Report to be given to Shaggy Apodaca RN.
[2020-04-19] VITALS: BP 127/61; PULSE 80; PULSE 83; RESP 18; TEMP 36.4; O2SAT 97
--- NOTE | 2020-04-19 03:55 | PC.NURSE ---
She is A&Ox4. He has received PRN pain medication for pain in her right hip radiating to her right knee. DSG on surgery site on right hip is intact with a small amount of serosanguinous drainage. There is a large purple bruise at the site. She ambulates with the walker. Nitropaste in place on her left foot. Slight purplish discoloration to her left great toe. Capillary refill <3. Positive radial and pedal pulses. DSGs are intact on her femoral and radial site. Her daughter is at the bedside. Her biggest complaint is a lack of a BM since 04/14. She reports that she is passing gas. Normoactive bowel sounds. She states he wants to see if the doctor will order her an enema in the morning. She has voiced that she did not want him paged for it at this time. She was started on miralax the previous shift and the SRNA reports she has given her prune juice.
[2020-04-19 04:00] VITALS: BP 120/62; PULSE 56; PULSE 80; RESP 18; TEMP 36.3; O2SAT 99
[2020-04-19 04:58] VITALS: BMI 32.5
[2020-04-19 07:58] VITALS: BP 126/71; PULSE 60; RESP 17; TEMP 36.6; O2SAT 94
[2020-04-19 08:00] VITALS: O2SAT 97
--- NOTE | 2020-04-19 08:19 | HMH.PNCARD ---
Subjective Date: 04/19/20 Time: 08:19 Principal diagnosis: Acute SFA occlusion Interval history: 69 yo WF in bed in NAD. No leg pain. Ambulating with assitance/walker in room and olivas without problems. NTG paste removed by me from foot. Bounding pulses noted. Still with slight purplish discoloration at tips of 1st and 2nd toe. Exam Vital signs and Labs for Last 24 Hours: Temp Pulse Resp BP Pulse Ox 97.9 F 60 17 126/71 94 L 04/19/20 07:58 04/19/20 07:58 04/19/20 07:58 04/19/20 07:58 04/19/20 07:58 Laboratory Results - last 24 hr 04/18/20 05:48: PT 10.9, INR 1.06 I & O for Last 24 hours: Intake & Output 04/16/20 04/17/20 04/18/20 04/19/20 11:59 11:59 11:59 11:59 Intake Total 450 / 450 581 / 581 850 / 850 Output Total 700 / 700 3250 / 3250 250 / 250 Balance -250 / -250 -2669 / -2669 600 / 600 Weight 202 lb 13.204 oz 202 lb 9.677 oz 202 lb 7 oz - *Routine HEENT Exam Head: Present: normocephalic Eye: Present: EOMI, PERRL ENT: Present: mucous membranes moist - *Routine Extremities Exam Absent: cyanosis, clubbing, edema Comments: slight purplish discoloration at tip of 1st and 2nd - *Routine Neurological Exam Present: alert, oriented X3 Progress Note: A&P (1) Femoral artery occlusion, left Status: Acute Current Visit: Yes (2) Class 1 obesity with body mass index (BMI) of 32.0 to 32.9 in adult Status: Acute Current Visit: Yes (3) HTN (hypertension) Status: Acute Current Visit: Yes (4) CRP elevated Status: Acute Current Visit: Yes (5) ESR raised Status: Acute Current Visit: Yes (6) Ischemic ulcer of toe of left foot Status: Acute Current Visit: Yes (7) Nail dystrophy Status: Acute Current Visit: Yes Assessment and Plan for All Diagnoses:: OK for discharge home from Cardiology standpoint. Continue ASA, plavix, atorvastatin, lisinopril and norvasc as outlined yesterday. F/U in office next Wednesday.
--- NOTE | 2020-04-19 08:49 | PC.NURSE ---
DURING MORNING ROUNDS WITH DR. FLEMING AND CARE MANAGEMENT, PT VERBALLY LASHED OUT TOWARDS RN AND CARE MANAGEMENT DURING DISCUSSION REGARDING BOOT FOR LEFT FOOT FOR DISCHARGE. PT APPEARS TO BE PARANOID AND ANXIOUS. WILL CONTINUE TO MONITOR.
--- NOTE | 2020-04-19 08:53 | HMH.DCSUM ---
General - General Admission date:: 04/16/20 Discharge date: 04/19/20 HPI HPI: 69-year-old female patient presented to the emergency department with left lower extremity pain, she does report a history of blood clots and believes that is her problem presently. She reports she was at [facility] in [place] for a surgical procedure involving a titanium plate placed in her pelvis to relieve her sciatic nerve pain. She states 4 days prior she began having a throbbing pain in her left foot pain has continued and increased to intolerable presently. In the emergency room pulses on left foot were present with Doppler only and left great toe was purplish in color. She denies fever/body aches/chills, shortness of breath, N/V/D, or chest pain. Heparin drip was started in ED CBC unremarkable, BUN 8, creatinine 0.5, ESR 35, phosphate 195, C-reactive protein 20.9 Extremity Doppler 04/16/2020: Conclusion LLE negative for DVT/SVT. Vessels compressible Left lower extremity CTA 04/16/2020: FINDINGS: There are atheromatous changes involving the abdominal aorta with mild dilatation the aorta at the L3 level measuring up to 2.4 cm. Is luminal irregularity from the atheromatous change. No significant stenosis of the common or external iliac arteries. Atheromatous changes are present. The left common femoral artery is unremarkable. There is occlusion of the proximal aspect of the left superficial femoral artery. The left femoral profundus is patent. No significant stenosis of the right superficial femoral artery or common femoral artery. There is reconstitution of the proximal aspect of the left proper popliteal artery with 3 vessel runoff on the left to the ankle. The runoff vessels on the right are not well demonstrated distally possibly due to the phase of contrast enhancement. Three-vessel runoff is present proximally in the right calf. Severe mild plaque is present at the ostium of the superior mesenteric artery with severe stenosis or occlusion of the proximal aspect of the SFA. There is a single right renal artery with 30 percent stenosis proximally from calcific plaque. Single left renal artery is unremarkable. The IVETTE is fairly prominent vessel. Collateral vessels noted from the IVETTE to the branches of the SMA. There is a small umbilical hernia containing fat. There is a moderate amount of retained colonic feces with colonic diverticulosis. Artifact is present from metallic fusion devices in the right SI joint. There are venous collaterals in the inguinal areas and gluteal region. IMPRESSION: 1. Occluded left superficial femoral artery with reconstitution of the proximal aspect of the left popliteal artery with three-vessel runoff to the ankle on the left 2. Mild dilatation of the abdominal aorta measuring up to 2.4 cm with some irregularity of the plaque within the aorta. 3. Severe stenosis versus occlusion of the SMA with collateral vessels from the IVETTE. Dictated by: Kp, Presently she is lying in bed respirations easy even she denies any shortness of breath or chest pain. Left pedal pulses obtained with Doppler, left great toe is purplish in color and painful to touch. Cardiology consult Hospital Course Hospital Course: Laboratory Tests 04/16/20 04/16/20 04/16/20 13:40 13:40 13:40 WBC 8.3 RBC 4.54 Hgb 14.8 Hct 44.7 MCV 98.3 MCH 32.7 H MCHC 33.2 RDW 13.7 Plt Count 273 MPV 7.7 Neut % (Auto) 72.6 Lymph % (Auto) 21.6 Bee % (Auto) 4.9 Eos % (Auto) 0.4 Baso % (Auto) 0.5 Neut # (Auto) 6.0 Lymph # (Auto) 1.8 Bee # (Auto) 0.4 Eos # (Auto) 0.0 Baso # (Auto) 0.0 ESR 35 H PT INR APTT Activated Clotting Time Sodium 138 Potassium 3.7 Chloride 103 Carbon Dioxide 28 Anion Gap 10.7 BUN 8 Creatinine 0.50 L Estimated Creat Clear 78 Estimated GFR 123 Est GFR (A
--- NOTE | 2020-04-19 10:10 | HMH.PHACLD ---
Addendum entered and electronically signed by Juancho Fermin PharmD 04/19/20 12:03: Ms. Kimball is now going home and was discharged on the following new medications: Aspirin, Plavix, Atorvastatin, Lisinopril, [place], Miralax. Patient is to continue amlodipine. New prescriptions were sent to clinic pharmacy. Patient does not need beta natividad at this time due to having a peripheral stent. Answered all questions by patient and patient's daughter. Both verbalized understanding. -Edmond Fermin PharmD Original Note: Estiven Kimball has received discharge medication counseling on the following medications: NEW MEDICATIONS: ASPIRIN, PLAVIX, ATORVASTATIN, LISINOPRIL CONTINUE MEDICATION: AMLODIPINE PATIENT HAD A PERIPHERAL STENT, BETA-NATIVIDAD NOT INDICATED. PATIENT IS DISCHARGED TO [facility].
--- NOTE | 2020-04-19 10:52 | PC.NURSE ---
PT REFUSED 1000 NITRO BC I DO NOT WANT TO GET IT ALL OVER MY SOCKS SINCE I AM GOING HOME. WILL CONTINUE TO MONITOR
--- NOTE | 2020-04-19 13:01 | PC.NURSE ---
late entry pt requested pain medication, medication brought to pt, pt refused because she suddenly felt nauseous and requested for bp to be taken (108/62). no further complaints, will continue to monitor
== END 2020-04-19 12:00 | disposition home or self-care (01) ==
LOC: ER 16:22 → 2ND 16:31
PROVIDERS: Internal Medicine; Nurse Practitioner Family; Admitting Provider Family Medicine; Emergency Provider Family Medicine; Visit Provider Family Medicine
DX: I70.212 Atherosclerosis of native arteries of extremities with intermittent claudication, left leg (principal); I70.221 Atherosclerosis of native arteries of extremities with rest pain, right leg; L97.529 Non-pressure chronic ulcer of other part of left foot with unspecified severity; R79.82 Elevated C-reactive protein (CRP); R70.0 Elevated erythrocyte sedimentation rate; L60.3 Nail dystrophy; I10 Essential (primary) hypertension; E66.9 Obesity, unspecified; Z79.899 Other long term (current) drug therapy; Z68.32 Body mass index [BMI] 32.0-32.9, adult; Z87.891 Personal history of nicotine dependence; Z88.2 Allergy status to sulfonamides; I77.1 Stricture of artery; Z88.8 Allergy status to other drugs, medicaments and biological substances; I70.92 Chronic total occlusion of artery of the extremities; Z90.49 Acquired absence of other specified parts of digestive tract; Z90.710 Acquired absence of both cervix and uterus
CPT/HCPCS: 36247; 36415; 37226; 73701; 75710; 80048; 80053; 81001; 85014; 85018; 85025; 85347; 85610; 85651; 85730; 86140; 86328; 93971; 96365; 96367; 96374; 96375; 97116; 97162; 97530; 99152; 99153; 99284; C1725; C1760; C1766; C1769; C1876; C1894; G0378; J1327; J1644; J2405; Q9966; Q9967

== ENCOUNTER 2020-05-17 15:58 | Emergency (ER) | payer MEDICARE, OTHER, SELFPAY ==
[2020-05-17 16:09] VITALS: BP 141/83; PULSE 87; RESP 15; TEMP 36.7; O2SAT 98; BMI 30.8
--- NOTE | 2020-05-17 16:13 | CA_ITS ---
APPROVED REPORT Right Lower Extremity Venous Study for DVT. Sandwich Wrapper: LUPE Indications Lower Extremity Pain: Right pain/throbbing Vein Imaging CFV (R): compressive, spontaneous, phasic, augmentation SFJ (R): compressive, spontaneous, phasic, augmentation FEM (R): compressive, spontaneous, phasic, augmentation POP (R): compressive, spontaneous, phasic, augmentation DFV (R): compressive, spontaneous, phasic, augmentation PTV (R): Compressible GSV (R): Compressible Peroneals (R):Compressible GAS (R): Compressible Findings No evidence of DVT or superficial thrombophlebitis in the veins scanned of the right lower extremity. Conclusion No evidence of DVT or superficial thrombophlebitis in the veins scanned of the right lower extremity. Electronically signed by : Salvador Goodrich MD 05/17/2020 17:28:52
--- NOTE | 2020-05-17 16:16 | HMH.EDGENADL ---
ED Disposition Clinical Impression: Hematoma of right lower extremity Qualifiers: Encounter type: initial encounter Qualified Code(s): S80.11XA - Contusion of right lower leg, initial encounter Disposition: Home, Self-Care Condition on Discharge: Good Instructions: DI for Hematoma (Bruise) Additional Instructions: Continue current medications. Follow-up with primary care provider if worsening symptoms. Ice and elevation for the first 48 hours can reduce swelling and pain. After that use warm compresses which will help the hematoma resolve. Referrals: Navneet Champion MD [Primary Care Provider] - - Critical Care Critical Care Time: No Attestation: On 05/17/20, the high probability of a clinically significant, sudden or life threatening deterioration of the following system(s) required my full and direct attention, intervention and personal management. The time I documented below is in addition to time spent performing reported procedures but includes the following listed in this critical care notation. Medical Decision Making - Gui Inquiry Pt receiving controlled substance: No Vital Signs: 05/17/20 16:09 Temperature 98.0 F Temperature Source Oral Pulse Rate [Right Radial] 87 Respiratory Rate 15 Blood Pressure [Right Arm] 141/83 H Blood Pressure Mean [Right Arm] 102 02 Sat by Pulse Oximetry 98 Oxygen Delivery Method Room Air - Lab Data Lab Results 05/17/20 16:16: WBC 8.1, RBC 4.70, Hgb 14.9, Hct 46.2, MCV 98.3, MCH 31.8 H, MCHC 32.3, RDW 12.7, Plt Count 371, MPV 6.9 L, Neut % (Auto) 53.7, Lymph % (Auto) 36.4, Bailey % (Auto) 5.0, Eos % (Auto) 3.8, Baso % (Auto) 1.0, Neut # (Auto) 4.3, Lymph # (Auto) 2.9, Bailey # (Auto) 0.4, Eos # (Auto) 0.3, Baso # (Auto) 0.1 05/17/20 16:16: PT 10.7, INR 0.96, APTT 25.6 05/17/20 16:16: Sodium 141, Potassium 4.0, Chloride 105, Carbon Dioxide 29, Anion Gap 11.0, BUN 12, Creatinine 0.80, Estimated Creat Clear 76, Estimated GFR 71, Est GFR ( Amer) 86, Glucose 148 H, Calcium 10.2, Total Bilirubin 0.8, AST 30, ALT 26, Alkaline Phosphatase 159 H, Total Protein 8.0, Albumin 4.7, Globulin 3.3 H, Albumin/Globulin Ratio 1.4 Result diagrams: 05/17/20 16:16 05/17/20 16:16 General Adult HPI - General Chief complaint: Extremity Injury, Lower Stated complaint: Right Leg pain Time Seen by Provider: 05/17/20 16:17 Mode of Arrival: Ambulatory Limitations: No Limitations Description of Symptoms (Recalled from ER Triage Doc. by RN): pt presents to ed with c/o right lower posterior calf pain and throbbing. pt states there is a knot there. - History of Present Illness HPI narrative: Complains of a bruise and knot behind her right knee that she noticed today. States that her right leg feels weird between her ankle and her hip. She is able to ambulate. She has intact sensation. She does not recall any injury. Recently admitted to this hospital 04/16/2020 through 04/19/2020 for occlusion of left superficial femoral artery, received stents in her left lower extremity. She says she also has a history of DVT, the most recent was 10 years ago. Has not noticed any discoloration of her right foot or toes. She is on aspirin and Plavix. - Related Data Previous Rx's Medication Instructions Recorded Aspirin [Aspirin 81mg EC Tab] 81 mg PO DAILY 30 Days #30 04/19/20 tablet. polyethylene glycoL 3350 [Miralax 17 gm PO DAILY 30 Days #30 04/19/20 17gm Packet] powd.pack amlodipine 10 mg tablet 10 mg PO DAILY #90 tab 05/03/20 atorvastatin 40 mg tablet 40 mg PO HS 30 Days #90 tab 05/03/20 clopidogrel 75 mg tablet 75 mg PO DAILY 30 Days #90 tab 05/03/20 cyclobenzaprine 10 mg tablet 10 mg PO BID PRN #60 tab 05/03/20 hydrocodone 5 mg-acetaminophen 325 1 tab PO BID PRN 30 Days #60 tab 05/03/20 mg tablet lisinopril 20 mg tablet 20 mg PO DAILY 90 Days #90 tab 05/03/20 Allergies Allergy/AdvReac Type Severity Reaction Status Date / Time Sulfa (Sulfonamide Allergy Interme
[2020-05-17 16:23] LABS: Basophils # 0.1 K/mm3 (0-0.2); Eosinophils # 0.3 K/mm3 (0.0-0.4); Eosinophils % 3.8 % (0.1-12.0); Hematocrit 46.2 % (37.0-47.0); Hemoglobin 14.9 g/dL (12.2-16.2); Lymphocytes # 2.9 K/mm3 (0.7-4.5); Lymphocytes % 36.4 % (10-50); Mean Corpuscular HGB Conc 32.3 g/dL (31.8-35.4); Mean Corpuscular Hemoglobin 31.8 pg (27.0-31.2); Mean Corpuscular Volume 98.3 fl (81-99); Mean Platelet Volume 6.9 fl (7.4-10.4); Monocytes # 0.4 K/mm3 (0.1-1.0); Neutrophils # 4.3 K/mm3 (1.8-7.8); Neutrophils % 53.7 % (37.0-80.0); Platelet Count 371 K/mm3 (142-424); Red Cell Distribution Width 12.7 % (11.5-17.5); White Blood Count 8.1 K/mm3 (4.8-10.8)
[2020-05-17 16:26] LABS: Chloride 105 mmol/L (98-107); Sodium 141 mmol/L (136-145)
[2020-05-17 16:29] LABS: Alanine Aminotransferase 26 U/L (12-78); Albumin Level 4.7 g/dl (3.5-5.0); Albumin/Globulin Ratio 1.4 (1.1-1.8); Alkaline Phosphatase 159 U/L (38-126); Aspartate Amino Transferase 30 U/L (14-36); Bilirubin,Total 0.8 mg/dl (0.2-1.3); Blood Urea Nitrogen 12 mg/dl (7-17); Carbon Dioxide 29 mmol/L (22.0-30.0); Creatinine Clearance Estimated 76 mL/min (50-200); Estimated Glomerular Filt Rate 71 ml/min (>60); GFR (African American) 86 ML/MIN (>60); Globulin 3.3 g/dL (1.3-3.2)
[2020-05-17 16:30] LABS: Calcium 10.2 mg/dl (8.4-10.2); Glucose 148 mg/dl (74-100)
[2020-05-17 16:37] LABS: Activated Partial Thrombo Time 25.6 seconds (23.6-34.0); INR 0.96 (0.9-1.1); Prothrombin Time 10.7 seconds (9.4-11.8)
[2020-05-17 17:10] VITALS: BP 142/73; PULSE 65; RESP 17; TEMP 36.7; O2SAT 99
[2020-05-17 17:14] VITALS: BP 142/88; PULSE 78; RESP 16; TEMP 36.6; O2SAT 98
== END 2020-05-17 17:17 | disposition home or self-care (01) ==
PROVIDERS: Emergency Provider Emergency Medicine; PCP Family Medicine
DX: S80.11XA Contusion of right lower leg, initial encounter (principal); M79.661 Pain in right lower leg; E78.5 Hyperlipidemia, unspecified; Z87.891 Personal history of nicotine dependence; Z90.49 Acquired absence of other specified parts of digestive tract; Z90.710 Acquired absence of both cervix and uterus
CPT/HCPCS: 80053; 85025; 85610; 85730; 93971; 99282

== ENCOUNTER → 2020-06-04 10:25 | Outpatient (POV) | payer MEDICARE, OTHER, SELFPAY | PROVIDERS: Visit Provider Dermatology | DX: Z00.00 Encounter for general adult medical examination without abnormal findings (principal) ==

== ENCOUNTER 2020-06-20 14:21 | Outpatient (RCR) | payer MEDICARE, OTHER, SELFPAY | END 2020-07-30 15:19 | disposition home or self-care (01) | LOC: PT 14:21 | PROVIDERS: Visit Provider Nurse Practitioner Family | DX: I70.212 Atherosclerosis of native arteries of extremities with intermittent claudication, left leg; I25.10 Atherosclerotic heart disease of native coronary artery without angina pectoris | CPT/HCPCS: 93668 ==

== ENCOUNTER → 2020-09-12 11:45 | Outpatient (CLI) | payer MEDICARE, OTHER, SELFPAY ==
--- NOTE | 2020-09-12 11:55 | XR_ITS ---
PROCEDURE: XR HAND LT MIN 3V CLINICAL INDICATION: hand pain COMPARISON: No exams were available for comparison FINDINGS: No fracture or dislocation. No lytic or blastic change. There is normal mineralization. The joint spaces are well-preserved. No significant degenerative/arthritic changes. No erosive changes evident. Other findings:None. IMPRESSION: No acute findings. Dictated by: Salvador Goodrich MD 09/12/2020 12:47 Salvador Goodrich MD in [place] 09/12/2020 12:47
== END ==
PROVIDERS: PCP Family Medicine; Visit Provider Orthopaedic Surgery
DX: M79.642 Pain in left hand (principal)
CPT/HCPCS: 73130

== ENCOUNTER → 2020-10-08 10:17 | Outpatient (CLI) | payer MEDICARE, OTHER, SELFPAY ==
--- NOTE | 2020-10-08 10:19 | US_ITS ---
APPROVED REPORT Exam Type: Ankle to Brachial Index Outside Physical Damage Appraiser: Salvador Arvizu RCS, RVS Indications Rest Pain: Bilaterally PAD Back Pain, s/p LT Popliteal arterial stenting 04/2020 Risk Factors History of Smoking Medications Aspirin Pressures/Indices Right Indices Left Indices Brachial 138.00 mmHg Brachial 131.00 mmHg Low Thigh 140.00 mmHg 1.01 Low Thigh 192.00 mmHg 1.39 Calf 118.00 mmHg 0.86 Calf 133.00 mmHg 0.96 Ankle(PT) 135.00 mmHg 0.98 Ankle(PT) 141.00 mmHg 1.02 Ankle(DP) 126.00 mmHg 0.91 Ankle(DP) 132.00 mmHg 0.96 Digit 127.00 mmHg 0.92 Digit 115.00 mmHg 0.83 Findings RT TONNY-0.98 LT TONNY-1.02 RT TPI-0.92 LT TPI-0.83 Conclusion RT TONNY-0.98 LT TONNY-1.02 RT TPI-0.92 LT TPI-0.83 Dampened waveforms Normal ABIs Electronically signed by : Salvador Goodrich MD 10/08/2020 18:27:28
== END ==
PROVIDERS: PCP Family Medicine; Visit Provider Nurse Practitioner Family
DX: R06.00 Dyspnea, unspecified (principal); I73.9 Peripheral vascular disease, unspecified
CPT/HCPCS: 93306; 93923

== ENCOUNTER 2021-01-19 16:35 | Emergency (ER) | payer MEDICARE, OTHER, SELFPAY ==
[2021-01-19 16:36] VITALS: BP 131/75; PULSE 75; RESP 16; TEMP 36.7; O2SAT 98; BMI 30.5
--- NOTE | 2021-01-19 16:55 | HMH.EDGENADL ---
ED Disposition Condition on Discharge: Good - Critical Care Critical Care Time: No <KelinChaz - Last Filed: 01/19/21 20:50> <Azael Kong - Last Filed: 01/19/21 23:43> Clinical Impression: Distention of vein, Wooziness Speech abnormality Qualifiers: Speech disturbance type: unspecified speech disturbance Qualified Code(s): R47.9 - Unspecified speech disturbances Superficial bruising of chest wall Qualifiers: Encounter type: initial encounter Laterality: unspecified laterality Qualified Code(s): S20.219A - Contusion of unspecified front wall of thorax, initial encounter Disposition: Home, Self-Care Instructions: Vertigo Additional Instructions: call dr howard in am Referrals: Navneet Howard MD [Primary Care Provider] - Attestation: On 01/19/21, the high probability of a clinically significant, sudden or life threatening deterioration of the following system(s) required my full and direct attention, intervention and personal management. The time I documented below is in addition to time spent performing reported procedures but includes the following listed in this critical care notation. Medical Decision Making - Gui Inquiry Pt receiving controlled substance: No - Lab Data Result diagrams: 01/19/21 17:25 01/19/21 17:25 - Radiology Data #1 Image(s): Chest Image Reviewed: Yes I reviewed the patient's radiology image, Yes I have reviewed radiologist's interpretation - Physician Consults Physician Consulted: Jaycee Time: 20:00 Reason -: Pt condition Comment/Response: Follow-up tomorrow in the office if work-up negative. Patient is currently at [facility] getting her CT of the head and CT angiogram of head and neck. <KelinChaz - Last Filed: 01/19/21 20:50> - Lab Data Lab results reviewed: Yes: I reviewed the patient's lab results. Result diagrams: 01/19/21 17:25 01/19/21 17:25 - CT Data CT Scan: Head, Other (cta head/neck) Time Received: 23:[address] Reviewed: Yes: I have viewed the radiologist's interpretation Preliminary Findings: Normal/NAD <Azael Kong - Last Filed: 01/19/21 23:43> Vital Signs: 01/19/21 16:36 01/19/21 17:20 01/19/21 22:45 Temperature 98.1 F Temperature Source Oral Pulse Rate 66 62 Pulse Rate [Right] 75 Respiratory Rate 16 Blood Pressure 122/63 148/61 H Blood Pressure [Right Arm] 131/75 Blood Pressure Mean [Right Arm] 93 Blood Pressure Source Automatic Cuff Blood Pressure Position Sitting 02 Sat by Pulse Oximetry 98 100 97 Oxygen Delivery Method Room Air Room Air Room Air 01/19/21 23:00 Temperature Temperature Source Pulse Rate 81 Pulse Rate [Right] Respiratory Rate Blood Pressure 140/74 Blood Pressure [Right Arm] Blood Pressure Mean [Right Arm] Blood Pressure Source Blood Pressure Position 02 Sat by Pulse Oximetry 97 Oxygen Delivery Method - Lab Data Lab Results 01/19/21 17:25: WBC 8.4, RBC 4.40, Hgb 13.6, Hct 39.8, MCV 90.6, MCH 31.0, MCHC 34.2, RDW 13.0, Plt Count 344, MPV 7.2 L, Neut % (Auto) 59.0, Lymph % (Auto) 33.2, [place] % (Auto) 6.2, Eos % (Auto) 1.0, Baso % (Auto) 0.7, Neut # (Auto) 5.0, Lymph # (Auto) 2.8, [place] # (Auto) 0.5, Eos # (Auto) 0.1, Baso # (Auto) 0.1 01/19/21 17:25: Sodium 130 L, Potassium 4.2, Chloride 99, Carbon Dioxide 22, Anion Gap 13.2, BUN 19 H, Creatinine 0.80, Estimated Creat Clear 75, Estimated GFR 71, Est GFR ( Amer) 86, Glucose 109 H, Calcium 9.3, Total Bilirubin 0.8, AST 34, ALT 25, Alkaline Phosphatase 143 H, Total Protein 7.6, Albumin 4.8, Globulin 2.8, Albumin/Globulin Ratio 1.7 01/19/21 17:25: Plasma/Serum Alcohol < 10 Orders (Tests/Meds): ED MEDICATIONS Generic Name Dose Route Start Last Admin Trade Name Freq PRN Reason Stop Dose Admin Sodium Chloride 10 ml 01/19/21 19:08 Sodium Chloride 0.9% 10ml Vial IV 02/18/21 19:07 NEEDED PRN to Dilute Lorazepam inj Discontinued Medications Generic Name Dose Rout
--- NOTE | 2021-01-19 17:15 | XR_ITS ---
PROCEDURE INFORMATION: Exam: XR Chest Exam date and time: 01/19/2021 5:15 PM Age: 70 years old Clinical indication: Other: Dizzy; Additional info: Veins popping TECHNIQUE: Imaging protocol: XR of the chest. Views: 2 views. COMPARISON: XA CL BOLUS ABHI UNILAT AORTA 04/17/2020 2:47 PM FINDINGS: Lungs: The lungs are hyperinflated, consistent with underlying small airways disease. Pleural spaces: Unremarkable. No pleural effusion. No pneumothorax. Heart/Mediastinum: Unremarkable. No cardiomegaly. Bones/joints: The thoracic spine demonstrates mild degenerative changes at multiple levels. IMPRESSION: The lungs are hyperinflated, consistent with underlying small airways disease.
--- NOTE | 2021-01-19 17:17 | ECG_ITS ---
APPROVED REPORT Exam: Resting ECG HR:66 bpm ECG Measurements Heart Rate 66 AXES WV 162 P 40 QRSd 90 QRS 57 QT 404 T 69 QTc 423 Conclusion Sinus rhythm with premature atrial complexes Otherwise normal ECG Electronically signed by : Mariano Velez, 01/21/2021 08:22:20
[2021-01-19 17:20] VITALS: BP 122/63; PULSE 66; O2SAT 100
[2021-01-19 17:36] LABS: Basophils # 0.1 K/mm3 (0-0.2); Basophils % 0.7 % (0.1-2.0); Eosinophils # 0.1 K/mm3 (0.0-0.4); Hematocrit 39.8 % (37.0-47.0); Hemoglobin 13.6 g/dL (12.2-16.2); Lymphocytes # 2.8 K/mm3 (0.7-4.5); Lymphocytes % 33.2 % (10-50); Mean Corpuscular HGB Conc 34.2 g/dL (31.8-35.4); Mean Corpuscular Volume 90.6 fl (81-99); Mean Platelet Volume 7.2 fl (7.4-10.4); Monocytes # 0.5 K/mm3 (0.1-1.0); Monocytes % 6.2 % (1.7-9.3); Platelet Count 344 K/mm3 (142-424); White Blood Count 8.4 K/mm3 (4.8-10.8)
[2021-01-19 17:39] LABS: Chloride 99 mmol/L (98-107)
[2021-01-19 17:40] LABS: Potassium 4.2 mmoL/L (3.5-5.1); Sodium 130 mmol/L (136-145)
[2021-01-19 17:42] LABS: Alanine Aminotransferase 25 U/L (12-78); Alkaline Phosphatase 143 U/L (38-126); Anion Gap 13.2 mEq/L (5-15); Aspartate Amino Transferase 34 U/L (14-36); Bilirubin,Total 0.8 mg/dl (0.2-1.3); Blood Urea Nitrogen 19 mg/dl (7-17); Carbon Dioxide 22 mmol/L (22.0-30.0); Creatinine Clearance Estimated 75 mL/min (50-200); Estimated Glomerular Filt Rate 71 ml/min (>60); GFR (African American) 86 ML/MIN (>60)
[2021-01-19 17:43] LABS: Albumin Level 4.8 g/dl (3.5-5.0); Albumin/Globulin Ratio 1.7 (1.1-1.8); Calcium 9.3 mg/dl (8.4-10.2); Globulin 2.8 g/dL (1.3-3.2); Glucose 109 mg/dl (74-100); Total Protein,Serum 7.6 g/dl (6.3-8.2)
[2021-01-19 17:44] LABS: Ethyl Alcohol < 10 mg/dl (0-10)
--- NOTE | 2021-01-19 17:59 | PC.NURSE ---
patient c/o bilateral hand numbness that just occurred. patient reports has no other neurological deficits at this time. patient reports a nervous affect. MD made aware. Will continue to monitor patient.
--- NOTE | 2021-01-19 18:09 | PC.NURSE ---
Pt returned from rad
--- NOTE | 2021-01-19 19:10 | PC.NURSE ---
PATIENT LEFT WITH EMS TO GET CT SCAN [facility]
--- NOTE | 2021-01-19 19:12 | PC.NURSE ---
Pt going to [facility] at this time for CT scan
--- NOTE | 2021-01-19 21:37 | PC.NURSE ---
pt returned from [facility] for ct scan
[2021-01-19 22:45] VITALS: BP 148/61; PULSE 62; O2SAT 97
[2021-01-19 23:00] VITALS: BP 140/74; PULSE 81; O2SAT 97
[2021-01-19 23:56] VITALS: BP 142/73; PULSE 88; RESP 16; TEMP 36.7; O2SAT 97
== END 2021-01-19 23:59 | disposition home or self-care (01) ==
PROVIDERS: Emergency Provider Emergency Medicine; PCP Family Medicine
DX: R42 Dizziness and giddiness (principal); R09.89 Other specified symptoms and signs involving the circulatory and respiratory systems; S20.219A Contusion of unspecified front wall of thorax, initial encounter; R47.9 Unspecified speech disturbances; I10 Essential (primary) hypertension; E78.5 Hyperlipidemia, unspecified; Z88.2 Allergy status to sulfonamides; Z87.891 Personal history of nicotine dependence
CPT/HCPCS: 70450; 70496; 70498; 71046; 80053; 85025; 93005; 96374; 99282

== ENCOUNTER → 2021-03-07 09:56 | Outpatient (CLI) | payer MEDICARE, OTHER, SELFPAY ==
[2021-03-07 10:53] LABS: Basophils # 0.1 K/mm3 (0-0.2); Eosinophils # 0.2 K/mm3 (0.0-0.4); Eosinophils % 2.7 % (0.1-12.0); Hematocrit 44.2 % (37.0-47.0); Hemoglobin 14.6 g/dL (12.2-16.2); Lymphocytes % 38.9 % (10-50); Mean Corpuscular HGB Conc 33.1 g/dL (31.8-35.4); Mean Corpuscular Hemoglobin 30.7 pg (27.0-31.2); Mean Corpuscular Volume 92.8 fl (81-99); Mean Platelet Volume 7.1 fl (7.4-10.4); Monocytes # 0.3 K/mm3 (0.1-1.0); Monocytes % 4.1 % (1.7-9.3); Neutrophils # 4.1 K/mm3 (1.8-7.8); Neutrophils % 53.3 % (37.0-80.0); Platelet Count 321 K/mm3 (142-424); Red Blood Count 4.76 M/mm3 (4.20-5.40); Red Cell Distribution Width 13.4 % (11.5-17.5); White Blood Count 7.6 K/mm3 (4.8-10.8)
[2021-03-07 11:36] LABS: Chloride 100 mmol/L (98-107); Sodium 136 mmol/L (136-145)
[2021-03-07 11:37] LABS: Potassium 4.1 mmoL/L (3.5-5.1)
[2021-03-07 11:39] LABS: Alanine Aminotransferase 19 U/L (12-78); Albumin Level 4.6 g/dl (3.5-5.0); Albumin/Globulin Ratio 1.7 (1.1-1.8); Alkaline Phosphatase 160 U/L (38-126); Anion Gap 12.1 mEq/L (5-15); Aspartate Amino Transferase 29 U/L (14-36); Bilirubin,Total 0.7 mg/dl (0.2-1.3); Blood Urea Nitrogen 10 mg/dl (7-17); Carbon Dioxide 28 mmol/L (22.0-30.0); Estimated Glomerular Filt Rate 123 ml/min (>60); GFR (African American) 148 ML/MIN (>60); Globulin 2.7 g/dL (1.3-3.2); Total Protein,Serum 7.3 g/dl (6.3-8.2)
[2021-03-07 11:40] LABS: Calcium 9.5 mg/dl (8.4-10.2); Glucose 115 mg/dl (74-100)
--- NOTE | 2021-03-07 11:48 | CT_ITS ---
PROCEDURE: CT ABDOMEN PELVIS W CON CLINICAL INDICATION: RLQ Pain COMPARISON: No exams were available for comparison TECHNIQUE: IV Contrast: 75ML Isovue 370 Oral Contrast None Axial images obtained with sagittal and coronal reformats. All CT scans at the facility use one or more dose reduction, viz: automated exposure control, ma/kV adjustment per patient size (including targeted exams where dose is matched to indication, i.e. head), or iterative reconstruction technique. FINDINGS: LOWER THORAX: Mild atelectatic changes ABDOMEN & PELVIS: The liver, spleen, adrenal glands, and pancreas have an unremarkable appearance. No renal or ureteral calculi or hydronephrosis. No obvious renal mass. There is mild diffuse thickening of the wall of the stomach nonspecific. This could be due to nondistention or gastritis. No evidence of appendicitis. There is colonic diverticulosis. No evidence of diverticulitis. No intestinal obstruction or free air. There are few air-fluid levels within nondistended small bowel in the mid abdominal region involving the jejunum and proximal ileum. There is also mild thickening of the transverse colon. These findings may be related to mild enterocolitis. There has been a prior hysterectomy. No pelvic mass or abnormal fluid collection apparent. There are degenerative changes in the lower thoracic spine and lumbar spine with 6 mm anterolisthesis of L4 on L5. Artifact is present from pins within the right SI joint. There is mild fusiform dilatation of the lower abdominal aorta at 2.4 cm and mild dilatation of the proximal common iliacs at 1.5 cm on the right and 1.4 cm on the left. IMPRESSION: 1. No evidence of appendicitis. No renal or ureteral calculi. 2. Colonic diverticulosis. No evidence of diverticulitis. 3. Mild diffuse thickening of the wall the stomach. This could be due to nondistention or gastritis. 4. Possible enterocolitis Dictated by: Salvador Goodrich MD 03/07/2021 12:58 Salvador Goodrich MD in [place] 03/07/2021 12:58
== END ==
PROVIDERS: PCP Family Medicine; Visit Provider Family Medicine
DX: S80.11XA Contusion of right lower leg, initial encounter; R10.31 Right lower quadrant pain
CPT/HCPCS: 36415; 74177; 80053; 85025; Q9967

== ENCOUNTER → 2021-04-11 11:42 | Outpatient (CLI) | payer MEDICARE, OTHER, SELFPAY ==
--- NOTE | 2021-04-11 | CA_ITS ---
APPROVED REPORT Exam: Pharmacologic Technologist: La Nena Otto, Ht: 5 ft 6 in Wt: 204 lbs BSA: 2.02 m2 HR: 50 bpm BP: 144/57 mmHg Indications: Chest pain Medical History Allergies: Sulfa, Diazepam, Sulfacetamide Cardiac Risk Factors: HTN, Hyperlipidemia Stress Test Details Test: LEXISCAN HR Resting HR: 52 bpm Max Heart Rate (APMHR): 152.814666 bpm Max HR Achieved: 90 bpm Target HR (85% APMHR): 129.175607 bpm % of APMHR: 59.21 Recovery HR: 72 bpm BP Resting BP: 144/57 mmHg Max BP: 164/62 mmHg Recovery BP: 164.0/62.0 mmHg ECG Resting ECG: Sinus Simone Clinical Exercise duration: 04:00 min Highest Stage Achieved: Stress ECG Conclusion Lexiscan portion completed. Patient c/o SOB during peak infusion which resolved during recovery. No chest pain. No arrhythmia or ectopy. Less than 1.5mm ST depression. Images to follow. Electronically signed by : Mamadou Page MD 04/11/2021 19:39:09
--- NOTE | 2021-04-11 11:42 | NM_ITS ---
APPROVED REPORT Exam: Nuclear Stress Test Indication: HTN, HYPERLIPIDEMIA, FM HX, C.P., SOB, FATIGUE Patient Location: Outpatient Stress Tech: La Nena Otto SD Tech:DG Osorio RT (R)(N)(M) Ht: 5 ft 6 in Wt: 200 lbs Bra Size: DD HR: 50 bpm BP: 144/57 mmHg BSA: 2.00 m2 BMI: 32.2 History: HTN, HYPERLIPIDEMIA, FM HX, C.P., SOB, FATIGUE Procedure: Patient received a 0.4 mg of intravenous Lexiscan, resting heart rate 50 bpm, resting blood pressure 144/57 mmHg, with Lexiscan maximum heart rate achived was 77 bpm which is Less than 85 % of the maximum predicted heart rate and blood pressure was 145/66 mmHg. With Lexiscan, patient denied any complaint of chest pain. Electrocardiogram Resting electrocardiogram showed sinus rhythm, with Lexiscan there is less than 1.[address] segment depression noted from the baseline EKG. The EKG portion of the Lexiscan Myoview is nondiagnostic. Cardiac Stress and Resting SPECT Images: Cardiac Stress and Resting SPECT images were obtained using technetium 99m Myoview 31.7 mCi stress and 10.74 mCi at rest. Gated SPECT for analysis of segmental wall motion and calculation of the ejection fraction also done. Prone images were also obtained. Cardiac stress and resting SPECT images show uniform myocardial activity without segmental perfusion abnormality, computer derived ejection fraction is 57% with no regional wall motion abnormality, right ventricle is normal size and contractility. Conclusion: 1. The EKG portion of the Lexiscan is nondiagnostic. 2. No scintigraphic evidence of reversible ischemia seen, computer derived ejection fraction of 57% with no regional wall motion abnormality, right ventricle is normal size and contractility. 3. Normal Lexiscan Myoview study. Electronically signed by : Mamadou Page MD 04/11/2021 19:45:03
== END ==
PROVIDERS: PCP Family Medicine; Visit Provider Urology
DX: I10 Essential (primary) hypertension (principal); I73.9 Peripheral vascular disease, unspecified; R06.00 Dyspnea, unspecified; R07.9 Chest pain, unspecified
CPT/HCPCS: 78452; 93017; A9502; J2785

== ENCOUNTER → 2021-08-05 17:59 | Outpatient (CLI) | payer MEDICARE, OTHER, SELFPAY | PROVIDERS: Visit Provider Family Medicine | DX: Z20.822 Contact with and (suspected) exposure to COVID-19 (principal); R05.9 Cough, unspecified; J02.9 Acute pharyngitis, unspecified | CPT/HCPCS: C9803; U0003; U0005 ==

== ENCOUNTER → 2021-09-09 13:45 | Outpatient (CLI) | payer MEDICARE, OTHER, SELFPAY ==
--- NOTE | 2021-09-09 13:49 | CA_ITS ---
FINAL REPORT CLINICAL HISTORY: bilateral leg swelling pain, PAD with stents FINDINGS: Color Doppler, duplex Doppler and compression sonography of the bilateral lower extremities was performed. There is no evidence of deep venous thrombosis from the level of the groin to the calf. The deep veins are patent and compressible. IMPRESSION: No evidence of deep venous thrombosis bilateral lower extremities. Reviewed, Interpreted and Dictated by Jordy Tatum III, MD Transcribed by Sven Craig Authenticated by Jordy Tatum III, MD on 09/09/2021 03:46:[address] [facility]
[2021-09-09 14:24] LABS: Basophils # 0.1 K/mm3 (0-0.2); Eosinophils # 0.1 K/mm3 (0.0-0.4); Eosinophils % 2.7 % (0.1-12.0); Hematocrit 40.7 % (37.0-47.0); Hemoglobin 13.3 g/dL (12.2-16.2); Lymphocytes # 1.8 K/mm3 (0.7-4.5); Mean Corpuscular HGB Conc 32.7 g/dL (31.8-35.4); Mean Corpuscular Hemoglobin 31.7 pg (27.0-31.2); Mean Corpuscular Volume 97.1 fl (81-99); Mean Platelet Volume 7.3 fl (7.4-10.4); Monocytes # 0.2 K/mm3 (0.1-1.0); Neutrophils % 57.3 % (37.0-80.0); Platelet Count 362 K/mm3 (142-424); Red Blood Count 4.19 M/mm3 (4.20-5.40); White Blood Count 5.2 K/mm3 (4.8-10.8)
[2021-09-09 14:40] LABS: D-Dimer 0.94 ug/mL (0.0-0.5)
[2021-09-09 14:42] LABS: Chloride 98 mmol/L (98-107)
[2021-09-09 14:43] LABS: Sodium 129 mmol/L (136-145)
[2021-09-09 14:45] LABS: Alanine Aminotransferase 34 U/L (12-78); Alkaline Phosphatase 121 U/L (38-126); Aspartate Amino Transferase 36 U/L (14-36); Bilirubin,Direct 0.2 mg/dl (0.0-0.4); Bilirubin,Indirect 0.2 mg/dL (0.0-0.9); Bilirubin,Total 0.4 mg/dl (0.2-1.3); Bilirubin,Unconjugated 0.2 mg/dL (0.0-1.1); Blood Urea Nitrogen 10 mg/dl (7-17); Carbon Dioxide 27 mmol/L (22.0-30.0); Cholesterol 184 mg/dl (140-200); Estimated Glomerular Filt Rate 122 ml/min (>60); GFR (African American) 148 ML/MIN (>60); Triglycerides 52 mg/dl (30-150); VLDL Cholesterol 10 mg/dL (0-40)
[2021-09-09 14:46] LABS: Albumin Level 4.5 g/dl (3.5-5.0); Calcium 9.3 mg/dl (8.4-10.2); Chol/HDL Ratio 2.2 (1-3.5); Glucose 98 mg/dl (74-100); HDL Cholesterol 83 mg/dl (40-60); Total Protein,Serum 6.8 g/dl (6.3-8.2)
[2021-09-09 14:56] LABS: NT Pro Brain Natriuretic Pep. 251 pg/mL (0-125)
[2021-09-09 15:03] LABS: Direct LDL Cholesterol 94.31 mg/dL (100-129)
[2021-09-09 15:04] LABS: Free T4 (Free Thyroxine) 0.92 ng/dl (0.78-2.19)
== END ==
PROVIDERS: PCP Family Medicine; Visit Provider Nurse Practitioner Family
DX: I10 Essential (primary) hypertension (principal); R06.00 Dyspnea, unspecified; R60.0 Localized edema; I73.9 Peripheral vascular disease, unspecified; M79.604 Pain in right leg; M79.605 Pain in left leg; Z86.718 Personal history of other venous thrombosis and embolism
CPT/HCPCS: 36415; 80048; 80061; 80076; 83880; 84439; 84443; 85025; 85378; 93970

== ENCOUNTER → 2021-09-09 15:17 | Outpatient (CLI) | payer MEDICARE, OTHER, SELFPAY ==
--- NOTE | 2021-09-09 15:31 | CT_ITS ---
FINAL REPORT TECHNIQUE: Then section axial CT images of the chest were obtained with contrast. Three-D reformatted images were also obtained.This study was performed with techniques to keep radiation doses as low as reasonably achievable (ALARA). Individualized dose reduction techniques using automated exposure control or adjustment of mA and/or kV according to the patient''s size were employed. CLINICAL HISTORY: positive d dimer(0.94)/cp/leg pain/swelling/hx dvt FINDINGS: There is no evidence of pulmonary embolism. There is no evidence of thoracic aortic aneurysm or dissection. There are several borderline size mediastinal and hilar lymph nodes. There are mild changes of emphysema. There is a calcified granuloma in the left lower lobe. There is a 5 mm nodule in the left lower lobe on image 46. There is mild bibasilar atelectasis. Limited images of the upper abdomen demonstrate prior cholecystectomy. IMPRESSION: 1. No evidence of pulmonary embolism. 2. Five mm left lower lobe nodule, nonspecific. Reviewed, Interpreted and Dictated by Jordy Tatum III, MD Transcribed by Sven Craig Authenticated by Jordy Tatum III, MD on 09/09/2021 04:13:59 PM [facility]
== END ==
PROVIDERS: PCP Family Medicine; Visit Provider Internal Medicine
DX: R78.89 Finding of other specified substances, not normally found in blood (principal); I10 Essential (primary) hypertension; I73.9 Peripheral vascular disease, unspecified; M79.604 Pain in right leg; M79.605 Pain in left leg; R06.00 Dyspnea, unspecified; R07.9 Chest pain, unspecified; R60.0 Localized edema; R79.89 Other specified abnormal findings of blood chemistry; Z01.810 Encounter for preprocedural cardiovascular examination; Z11.52 Encounter for screening for COVID-19
CPT/HCPCS: 36415; 71275; 80048; 80061; 80076; 83880; 84439; 84443; 85025; 85378; 93970; C9803; Q9967; U0003; U0005

== ENCOUNTER 2021-09-10 09:28 | Day surgery (SDC) | payer MEDICARE, OTHER, SELFPAY ==
[2021-09-10] VITALS (10 sets, daily range): BP systolic 120–159; BP diastolic 56–80; PULSE 50–62; RESP 20; O2SAT 90–100; BMI 34.7
--- NOTE | 2021-09-10 07:05 | IR_ITS ---
APPROVED REPORT Patient Location: Outpatient PROCEDURES Left femoral arterial access with catheter placement in the abdominal aorta Abdominal aortography Repositioning of the catheter in the abdominal aorta Bilateral iliofemoral INDICATION Abnormal TONNY, Peripheral artery disease, [place] claudication class III Informed consent was obtained prior to the procedure. COMPLICATIONS None Estimated Blood Loss: Less than 10 mls TECHNIQUE 1% lidocaine used to anesthetize the left femoral groin. The left femoral artery was accessed via the Seldinger technique. A 4 [place] sheath was placed in the left femoral artery and a pigtail catheter was advanced to the abdominal aorta. Abdominal aortography was performed. The catheter was then repositioned and bilateral iliofemoral runoff was then performed. At the end of the procedure the apparatus was removed the patient was transferred to the postop putting in stable condition for sheath removal. ANGIOGRAPHIC RESULTS The suprarenal abdominal aorta is widely patent with mild 10% atheromatous plaque. The infrarenal abdominal aorta is widely patent with mild vascular ectatic areas with no stenosis greater than 10% The mesenteric arteries are normal Bilateral renal arteries are solitary and normal The bilateral common internal and external iliac arteries are widely patent as are the bilateral common femoral arteries The bilateral profunda femoris arteries are widely patent The right superficial femoral artery is widely patent with excellent inline flow into the widely patent right popliteal artery. The right popliteal artery has minimal eccentric 30% stenoses and then gives two-vessel runoff below the knee into the foot from the peroneal artery and the anterior tibialis artery. The posterior tibialis artery then recannulate's in the distal third of the leg and then supplies flow through the posterior tibialis artery into the foot. The left superficial femoral artery is widely patent with stents extending from the proximal SFA throughout its entire course into the popliteal artery. There are minimal eccentric 30% plaque stenoses. Below the knee there is three-vessel runoff from the anterior and posterior tibialis artery as well as the peroneal artery. The foot is supplied primarily by the posterior tibialis artery while there is scant antegrade flow from the anterior tibial artery/dorsalis pedis IMPRESSION Peripheral artery disease as described above PLAN 1. Medical management for arterial disease 2. Patient's edema likely stems from venous insufficiency or other hydrostatic nonvascular causes 3. Consider increasing loop diuretics Electronically signed by : Solo Pizarro MD 09/10/2021 15:39:25
== END 2021-09-10 16:58 | disposition home or self-care (01) ==
LOC: CATHLAB 09:30
PROVIDERS: PCP Family Medicine; Visit Provider Internal Medicine
DX: I10 Essential (primary) hypertension (principal); R06.00 Dyspnea, unspecified; R07.9 Chest pain, unspecified; R60.0 Localized edema; R79.89 Other specified abnormal findings of blood chemistry; Z79.01 Long term (current) use of anticoagulants; Z95.828 Presence of other vascular implants and grafts; I77.1 Stricture of artery; I70.223 Atherosclerosis of native arteries of extremities with rest pain, bilateral legs; Z79.899 Other long term (current) drug therapy; Z88.8 Allergy status to other drugs, medicaments and biological substances
CPT/HCPCS: 36247; 75716; 99152; C1725; C1769; J1644; Q9966

== ENCOUNTER → 2021-09-13 12:43 | Outpatient (CLI) | payer MEDICARE, OTHER, SELFPAY | PROVIDERS: PCP Family Medicine; Visit Provider Surgery | DX: Z01.812 Encounter for preprocedural laboratory examination (principal); Z11.52 Encounter for screening for COVID-19; D64.9 Anemia, unspecified; Z12.11 Encounter for screening for malignant neoplasm of colon | CPT/HCPCS: C9803; U0003; U0005 ==

== ENCOUNTER 2021-09-16 09:33 | Day surgery (SDC) | payer MEDICARE, OTHER, SELFPAY ==
[2021-09-11 10:55] VITALS: BMI 34.4
[2021-09-16] VITALS (7 sets, daily range): BP systolic 98–151; BP diastolic 53–82; PULSE 57–77; RESP 16–18; TEMP 36.6–36.7; O2SAT 93–100
--- NOTE | 2021-09-16 10:14 | HMH.ANESCL ---
[facility] Anesthesia Checklist - Patient Identification Patient Identification: Arm Band - Structural Data Admitted From: Home Planned Operative Procedure/s: EGD/ Colonoscopy Consent for Planned Operative Procedure(s) Verified: Yes - NPO Status Verified Time NPO: 00:00 - Airway Assessment C-Spine Mobility Assessed: Yes TMJ Mobility Assessed: Yes Dentition: Good Dentition - Neurological Assessment Level of Consciousness: Awake Hx Seizures: No Numbness or tingling in extremities: No - Anesthesia Plan Anesthesia Risk discussed: Yes Anesthesia Plan: Verified ASA Class: III Anesthesia Type: MAC [facility] History Medical History: Reports:: Anxiety, Cancer (skin cancer), Deep Vein Thrombosis, Hyperlipidemia, Hypertension, Peripheral Artery Disease Denies:: Diabetes Mellitus Type 1, Diabetes Mellitus Type 2, Internal Pacemaker, MRSA, Seizures *Have you ever received a pneumonia vaccine?: No *Have you received a flu vaccine this season?: Yes Other Medical History: Reports: Arthritis Anesthesia experience/problems:: None Laterality Cases: Bilateral: Tonsillectomy, Total Hip Replacement Other Surgeries: Yes: Angiogram, Cholecystectomy, Hysterectomy-Total. No: Pacemaker Amputation: No Fractures: No - *Social History Last grade of school completed: Advanced degree Smoking Status: Former smoker # Packs/Day (cigarettes): 1 #Yrs smoked (if former smoker): 10 Alcohol Intake: current Alcohol Intake Frequency:: holidays/special occasions only Substance Use Type: denies use *Occupational Status:: retired, disabled Housing: house Household Members: none *Travel in the last 8 weeks: None - Psychiatric History Pschychiatric History:: Reports:: Anxiety Family Hx:: Cancer, Heart Attack, Hypertension
--- NOTE | 2021-09-16 10:54 | HMH.SCOPE ---
- Procedure: Date: 09/16/21 Patient Date of :: 1950 Procedure Performed:: Esophagogastroduodenoscopy with biopsy Colonoscopy with polypectomy Indications:: Abdominal pain Reflux Screening Performing Provider:: Chester Sna MD Referring Provider:: . Sedation:: Monitored anesthesia care Procedure:: After informed consent was obtained the patient was taken to the endoscopy suite. Sedation ensued after the patient was transferred to the left lateral decubitus position. Pulse, blood pressure, and oxygen saturation were monitored throughout the procedure. The endoscope was advanced beyond the duodenal bulb. Retroflexion within the gastric lumen was accomplished. The gastroscope was carefully removed. Digital rectal exam revealed no significant abnormality. The colonoscope was placed in position. The entire colon was evaluated. The colonoscope was carefully removed and the patient was transferred to recovery in stable condition. Please see findings and specimens below for detail. Findings:: Gastroesophageal junction at 36 cm Sliding hiatal hernia Moderate to poor bowel preparation Hemorrhoidal tag/cushions Sigmoid diverticulosis Fairly severe lack of relaxation, spasticity, and tortuosity (worse in sigmoid) Multiple complex polyps (see specimens Specimens:: Antral biopsy Sessile lobulated polyp at 55 cm (snare) Large adjacent sessile lobulated polyps at 40 cm (snare) Lobulated polyp at 15 cm Recommendations:: Timing of repeat colonoscopy is pending pathology but will likely be between 1-2 years secondary to size/nature/number of polyps and limitations in visualization due to bowel preparation, spasticity, tortuosity, and lack of relaxation. Consider gastroenterology evaluation secondary to patient's symptomatology. Defer repeat endoscopic evaluation to the gastroenterology service. Complications:: No immediate Estimated blood obtained (mL): 1
== END 2021-09-16 11:48 | disposition home or self-care (01) ==
LOC: OUTP 09:35
PROVIDERS: PCP Family Medicine; Visit Provider Surgery
PROC: 0DJ08ZZ Inspection of Upper Intestinal Tract, Via Natural or Artificial Opening Endoscopic (ICD-10-PCS; CPT 43235; principal; 2021-09-16 10:30)
DX: Z12.11 Encounter for screening for malignant neoplasm of colon (principal); K63.5 Polyp of colon; I10 Essential (primary) hypertension; K57.32 Diverticulitis of large intestine without perforation or abscess without bleeding; K56.2 Volvulus; K58.9 Irritable bowel syndrome, unspecified; K44.9 Diaphragmatic hernia without obstruction or gangrene; K64.9 Unspecified hemorrhoids; I73.9 Peripheral vascular disease, unspecified; Z82.49 Family history of ischemic heart disease and other diseases of the circulatory system; Z80.9 Family history of malignant neoplasm, unspecified; Z86.718 Personal history of other venous thrombosis and embolism; Z88.2 Allergy status to sulfonamides; Z88.8 Allergy status to other drugs, medicaments and biological substances
CPT/HCPCS: 43239; 45385; 88305

== ENCOUNTER → 2021-09-17 10:17 | Outpatient (CLI) | payer MEDICARE, OTHER, SELFPAY ==
--- NOTE | 2021-09-17 10:19 | CA_ITS ---
FINAL REPORT TECHNIQUE: Color Doppler, duplex Doppler and gao scale sonography of the bilateral neck arterial vasculature was performed. Velocities were measured in the carotid arteries. Stenosis evaluation based on the validated velocity criteria. CLINICAL HISTORY: right carotid bruit, PAD, CP, HTN, HLD, EX SMOKER, FINDINGS: The peak systolic velocity of the right common carotid artery is 113 cm/s. The peak systolic velocity of the right internal carotid artery is 91 cm/s and end diastolic velocity 22 cm/s. The ICA/CCA ratio is 1.1. A ledc-nl-cflvysqw amount of plaque is present. The right external carotid artery is patent. The right vertebral artery is patent with antegrade flow. The peak systolic velocity of the left common carotid artery is 93 cm/s. The peak systolic velocity of the left internal carotid artery is 152 cm/s and end diastolic velocity 29 cm/s. The ICA/CCA ratio is 1.9. A mild to moderate amount of plaque is present. The left external carotid artery is patent.The left vertebral artery is patent with antegrade flow. IMPRESSION: Less than 50% bilateral carotid stenosis. Bilateral patent vertebral arteries with antegrade flow. Reviewed, Interpreted and Dictated by Jordy Tatum III, MD Transcribed by Michelle Lewis Authenticated by Jordy Tatum III, MD on 09/17/2021 12:52:51 PM [facility]
[2021-09-17 11:07] LABS: Chloride 94 mmol/L (98-107); Potassium 4.4 mmoL/L (3.5-5.1); Sodium 127 mmol/L (136-145)
[2021-09-17 11:10] LABS: Anion Gap 10.4 mEq/L (5-15); Blood Urea Nitrogen 8 mg/dl (7-17); Carbon Dioxide 27 mmol/L (22.0-30.0); Estimated Glomerular Filt Rate 122 ml/min (>60); GFR (African American) 148 ML/MIN (>60)
[2021-09-17 11:11] LABS: Calcium 8.9 mg/dl (8.4-10.2); Glucose 111 mg/dl (74-100)
== END ==
PROVIDERS: PCP Family Medicine; Visit Provider Nurse Practitioner Family
DX: R09.89 Other specified symptoms and signs involving the circulatory and respiratory systems (principal); F41.9 Anxiety disorder, unspecified; I10 Essential (primary) hypertension; I73.9 Peripheral vascular disease, unspecified; R07.9 Chest pain, unspecified; R60.9 Edema, unspecified
CPT/HCPCS: 36415; 80048; 93880

== ENCOUNTER → 2021-09-29 13:27 | Outpatient (CLI) | payer MEDICARE, OTHER, SELFPAY ==
--- NOTE | 2021-09-29 13:32 | MR_ITS ---
FINAL REPORT CLINICAL HISTORY: DHO-r foot pain.pain on plantar surface of foot. swelling in foot [id number]. no injury or trauma. FINDINGS: Multiplanar MR imaging of the right foot was performed without contrast. The bony structures are intact without evidence of fracture, bone bruise or marrow edema. The flexor and extensor tendons are intact. The musculature is intact. The plantar aponeurosis is intact. No soft tissue mass or cyst is identified. There is mild soft tissue edema overlying the dorsum of the foot with moderate subcutaneous edema about the ankle. IMPRESSION: Soft tissue edema, otherwise unremarkable exam. Reviewed, Interpreted and Dictated by Renzo Arteaga MD Transcribed by Mera Hernandez Authenticated by Renzo Arteaga MD on 09/29/2021 04:07:32 PM [facility]
== END ==
PROVIDERS: PCP Family Medicine; Visit Provider Podiatrist
DX: R29.898 Other symptoms and signs involving the musculoskeletal system (principal)
CPT/HCPCS: 73718

== ENCOUNTER → 2021-10-20 11:32 | Outpatient (CLI) | payer MEDICARE, OTHER, SELFPAY ==
[2021-10-20 15:13] LABS: Vitamin B12 783 pg/mL (239-931)
[2021-10-20 15:24] LABS: Folate 6.35 ng/mL
== END ==
PROVIDERS: Visit Provider Internal Medicine
DX: F41.9 Anxiety disorder, unspecified (principal); I10 Essential (primary) hypertension; I70.202 Unspecified atherosclerosis of native arteries of extremities, left leg; R09.89 Other specified symptoms and signs involving the circulatory and respiratory systems; R20.0 Anesthesia of skin; R60.9 Edema, unspecified
CPT/HCPCS: 36415; 82607; 82746

== ENCOUNTER → 2021-10-27 16:00 | Outpatient (CLI) | payer MEDICARE, OTHER, SELFPAY ==
[2021-10-27 18:33] LABS: Benzodiazepines Screen,Urine Negative ng/ml (<200)
[2021-10-27 18:34] LABS: Amphetamine/Metha Screen,Urine Negative ng/ml (<1000); Barbiturates Screen,Urine Negative ng/ml (<200)
[2021-10-27 18:35] LABS: Cannabinoid Screen,Urine Positive ng/ml (<50); Methadone Screen,Urine Negative ng/ml (<300)
[2021-10-27 18:36] LABS: Cocaine Screen,Urine Negative ng/ml (<300)
[2021-10-27 18:37] LABS: Opiate Screen,Urine Negative ng/ml (<300); Phencyclidine Screen,Urine Negative ng/ml (<25)
== END ==
PROVIDERS: Visit Provider Family Medicine
DX: N23 Unspecified renal colic (principal); Z79.899 Other long term (current) drug therapy
CPT/HCPCS: 80305; 87086

== ENCOUNTER → 2021-11-03 14:01 | Outpatient (CLI) | payer MEDICARE, OTHER, SELFPAY ==
--- NOTE | 2021-11-03 14:01 | CT_ITS ---
FINAL REPORT TECHNIQUE: Thin section axial CT images with coronal and sagittal reformats were performed through the soft tissues of the neck. This study was performed with techniques to keep radiation doses as low as reasonably achievable (ALARA). Individualized dose reduction techniques using automated exposure control or adjustment of mA and/or kV according to the patient's size were employed. CLINICAL HISTORY: globus, right side FINDINGS: CT NECK WITHOUT No adenopathy or mass lesion is present . Salivary glands are normal. The nasopharynx, oropharynx and larynx are unremarkable. The thyroid gland is unremarkable. There are moderate bilateral carotid artery calcifications. Limited images of the lung apices demonstrate mild emphysema and mild scarring. IMPRESSION: No acute process. Reviewed, Interpreted and Dictated by Jordy Tatum III, MD Transcribed by Lilliam Cramer Authenticated by Jordy Tatum III, MD on 11/03/2021 04:01:42 PM [facility]
== END ==
PROVIDERS: PCP Family Medicine; Visit Provider Family Medicine
DX: R19.8 Other specified symptoms and signs involving the digestive system and abdomen (principal)
CPT/HCPCS: 70490

== ENCOUNTER → 2021-12-29 13:41 | Outpatient (CLI) | payer MEDICARE, OTHER, SELFPAY ==
--- NOTE | 2021-12-29 13:47 | XR_ITS ---
FINAL REPORT CLINICAL HISTORY: LOWER ABDOMNIAL PAIN. DIARRHEA OF PRESUMED INFECTIOUS ORIGIN FINDINGS: A single supine view the abdomen was obtained. The bowel gas pattern is nonspecific but nonobstructive. There are no pathologic calcifications. Postoperative changes are noted of cholecystectomy and of right SI joint fusion. No acute osseous abnormality. IMPRESSION: Nonspecific but nonobstructive bowel gas pattern. Reviewed, Interpreted and Dictated by Nadia Anderson MD Transcribed by Mera Hernandez Authenticated by Nadia Anderson MD on 12/29/2021 04:21:38 PM [facility]
[2021-12-29 15:06] LABS: C-Reactive Protein 1.8 mg/L (0-4)
[2022-01-02 14:13] LABS: Strongyloides IgG Antibody Negative (Negative)
== END ==
PROVIDERS: PCP Family Medicine; Visit Provider Nurse Practitioner
DX: R10.30 Lower abdominal pain, unspecified (principal); R19.7 Diarrhea, unspecified
CPT/HCPCS: 36415; 74018; 86140; 86682

== ENCOUNTER → 2022-01-13 10:22 | Outpatient (CLI) | payer MEDICARE, OTHER, SELFPAY ==
[2022-01-13 10:38] LABS: Adenovirus F 40/41, stool Not Detected (NotDetected); Astrovirus Not Detected (NotDetected); Campylobacter Not Detected (NotDetected); Clostridium Difficile A/B, PCR Not Detected (NotDetected); Cryptosporidium Not Detected (NotDetected); Cyclospora Cayetanesis Not Detected (NotDetected); Entamoeba histolytica Not Detected (NotDetected); Enteroaggregative E coli Not Detected (NotDetected); Enteropathogenic E coli Not Detected (NotDetected); Enterotoxigenic E coli Not Detected (NotDetected); Giardia lamblia Not Detected (NotDetected); Norovirus Not Detected (NotDetected); Plesimonas Shigalloides, PCR Not Detected (NotDetected); Rotavirus A Not Detected (NotDetected); Salmonella, PCR Not Detected (NotDetected); Sapovirus Not Detected (NotDetected); Shiga-like toxin E coli Not Detected (NotDetected); Shigella Enterovasive E coli Not Detected (NotDetected); Vibrio Cholerae Not Detected (NotDetected); Vibrio, PCR Not Detected (NotDetected); Yersinia Entercolitica, PCR Not Detected (NotDetected)
== END ==
PROVIDERS: PCP Family Medicine; Visit Provider Nurse Practitioner
DX: R19.7 Diarrhea, unspecified (principal)
CPT/HCPCS: 87045; 87177; 87506

== ENCOUNTER → 2022-06-22 09:42 | Outpatient (CLI) | payer MEDICARE, OTHER, SELFPAY ==
[2022-06-22 11:03] LABS: Chloride 93 mmol/L (98-107); Potassium 4.1 mmoL/L (3.5-5.1); Sodium 132 mmol/L (136-145)
[2022-06-22 11:06] LABS: Anion Gap 12.1 mEq/L (5-15); Blood Urea Nitrogen 10 mg/dl (7-17); Calcium 9.8 mg/dl (8.4-10.2); Carbon Dioxide 31 mmol/L (22.0-30.0); Estimated Glomerular Filt Rate 99 ml/min (>60); GFR (African American) 120 ML/MIN (>60); Glucose 105 mg/dl (74-100)
== END ==
PROVIDERS: PCP Family Medicine; Visit Provider Physician Assistant
DX: E87.1 Hypo-osmolality and hyponatremia (principal); I10 Essential (primary) hypertension; I73.9 Peripheral vascular disease, unspecified; M79.604 Pain in right leg; M79.605 Pain in left leg; R06.00 Dyspnea, unspecified; R60.0 Localized edema
CPT/HCPCS: 36415; 80048

== ENCOUNTER → 2022-11-05 12:08 | Outpatient (CLI) | payer MEDICARE, OTHER, SELFPAY ==
--- NOTE | 2022-11-05 12:31 | CT_ITS ---
FINAL REPORT TECHNIQUE: Thin section axial images were obtained from the thoracic inlet through the upper abdomen after intravenous contrast injection. Reconstruction images were obtained from the axial data. Exam was performed using dose reduction technique. CLINICAL HISTORY: follow up lung nodule COMPARISON: 09/09/2021 FINDINGS: There is no axillary adenopathy. There is a small high right paratracheal lymph node, unchanged from previous. There is no evidence of lymphadenopathy. There is no pleural or pericardial effusion. There is a stable 5 mm left lower lobe nodule well seen on image 37. There is been interval improvement in the right lower lobe atelectasis. Right middle lobe and lingular atelectasis or scar is stable. Limited evaluation of the upper abdomen is without acute abnormality. No acute osseous abnormality. IMPRESSION: Stable pulmonary nodule. No new abnormality identified. Reviewed, Interpreted and Dictated by Nadia Anderson MD Transcribed by Lisa Parr Authenticated and [facility]
[2022-11-05 12:55] LABS: Chloride 92 mmol/L (98-107); Potassium 4.3 mmoL/L (3.5-5.1); Sodium 123 mmol/L (136-145)
[2022-11-05 12:58] LABS: Anion Gap 11.3 mEq/L (5-15); Blood Urea Nitrogen 9 mg/dl (7-17); Carbon Dioxide 24 mmol/L (22.0-30.0); Estimated Glomerular Filt Rate 122 ml/min (>60); GFR (African American) 148 ML/MIN (>60)
[2022-11-05 12:59] LABS: Glucose 110 mg/dl (74-100)
== END ==
PROVIDERS: PCP Family Medicine; Visit Provider Family Medicine
DX: R91.1 Solitary pulmonary nodule (principal)
CPT/HCPCS: 36415; 71260; 80048; Q9967

== ENCOUNTER 2022-11-05 13:56 | Emergency (ER) | payer MEDICARE, OTHER, SELFPAY ==
[2022-11-05 13:58] VITALS: BP 156/55; PULSE 55; RESP 18; TEMP 36.7; O2SAT 98; BMI 34.4
[2022-11-05 14:18] VITALS: BP 156/55; PULSE 49; RESP 18
--- NOTE | 2022-11-05 14:23 | HMH.EDGENADL ---
Discharge Plan Disposition Patient Disposition: Home, Self-Care Prescriptions Prescriptions: No Action oxcarbazepine 600 mg tablet 600 mg PO BID Label Comments: TAKE ONE TABLET BY MOUTH TWICE DAILY mirtazapine 15 mg tablet 15 mg PO HS furosemide 40 mg tablet 40 mg PO DAILY Qty: 90 3RF rivaroxaban 2.5 mg tablet 2.5 mg PO BID Qty: 180 3RF clobetasol 15 GM cream 1 applic TOPICAL BID atorvastatin 40 mg tablet See Rx Instructions .ROUTE .COMPLEX Rx Instructions: TAKE ONE TABLET BY MOUTH EVERY DAY AT BEDTIME FOR high cholesterol carvedilol [Coreg] 6.25 mg tablet 6.25 mg PO BID Rx Instructions: must administer with a meal/food amlodipine 10 mg tablet See Rx Instructions .ROUTE .COMPLEX Rx Instructions: TAKE ONE TABLET BY MOUTH DAILY FOR high blood pressure losartan 100 mg tablet 100 mg PO DAILY aspirin 81 MG tablet,delayed release (DR/EC) 81 mg PO DAILY Referrals Follow up/Referrals: Krishna Dias JR, MD [Physician] - See instructions (OA left knee with bakers cyst ) Navneet Champion MD [Primary Care Provider] - See instructions Activity Restrictions/Add. Instructions Additional Instructions/Restrictions: You may take 6 or 800 mg of ibuprofen 3 times a day as needed for pain. Please follow-up with orthopedic surgery to discuss your osteoarthritis of the left knee and your Boyd's cyst treatment. 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 Pizarro several years ago presents with left lower extremity pain. States that she was actually going to get a CT scan with contrast to follow-up the lung nodule earlier today and try to get in but seen by Dr. Pizarro and they told her to come to the emergency department due to ongoing pain. She denies any coolness of her left lower extremity denies any motor or sensory loss this has been going on for 1 week. There is no sudden component to this as well and there is no claudication or exertional component to it as well. It is localized over her knee and worse over the popliteal region of the left lower extremity. She states she has some subjective swelling of left lower extremity. She also states that in addition to her femoral artery occlusion she has a history of DVT but she is not sure how long ago that was. She is currently anticoagulated on Xarelto and has not missed any doses of this recently. Related Data Home Medications Medication Instructions Recorded Confirmed mirtazapine 15 mg tablet 15 mg PO HS antidepressant 01/07/21 11/05/22 aspirin 81 mg tablet,delayed 81 mg PO DAILY ANTICOUGULANT 01/19/21 11/05/22 release clobetasol 0.05 % topical cream 1 applic topical BID . 09/16/21 11/05/22 oxcarbazepine 600 mg tablet 600 mg PO BID mood 06/02/22 11/05/22 amlodipine 10 mg tablet See Rx Instructions .Route 11/05/22 11/05/22 .COMPLEX High blood pressure atorvastatin 40 mg tablet See Rx Instructions .Route 11/05/22 11/05/22 .COMPLEX Cholesterol carvedilol 6.25 mg tablet (Coreg) 6.25 mg PO BID High blood pressure 11/05/22 11/05/22 losartan 100 mg tablet 100 mg PO DAILY High blood pressure 11/05/22 11/05/22 Previous Rx's Medication Instructions Recorded furosemide 40 mg tablet 40 mg PO DAILY Fluid #90 tabs 05/20/22 rivaroxaban 2.5 mg tablet 2.5 mg PO BID ANTICOUGULANT #180 05/20/22 tabs Allergies Allergy/AdvReac Type Severity Reaction Status Date / Time Sulfa (Sulfonamide Allergy Intermediate Rash Verified
--- NOTE | 2022-11-05 14:34 | PC.NURSE ---
SUSAN GOMEZ at
--- NOTE | 2022-11-05 14:44 | XR_ITS ---
FINAL REPORT CLINICAL HISTORY: pain, no recent injury FINDINGS: AP, lateral and oblique views of the left knee were obtained. There is no prior exam for comparison. There is no acute osseous abnormality of the left knee. There is degenerative joint disease. A vascular stent is seen in the posterior distal thigh. The soft tissues are normal. There is no joint effusion. IMPRESSION: No acute osseous abnormality of the left knee. Reviewed, Interpreted and Dictated by Nadia Anderson MD Transcribed by Lisa Parr Authenticated and . [facility]
--- NOTE | 2022-11-05 14:44 | CA_ITS ---
FINAL REPORT CLINICAL HISTORY: leg pain, Hx- occlussive PAD with Lt. fem stents FINDINGS: DUPLEX VENOUS SONOGRAPHY OF THE LEFT LOWER EXTREMITY Multiple transverse and longitudinal scans were performed of the femoropopliteal deep venous system, with augmentation and compression maneuvers. Normal phasic flow was noted in the visualized deep venous system. No intraluminal increased echogenicity is noted to suggest thrombus. There is normal compression and augmentation of the venous structures. No abnormal venous collaterals are seen. IMPRESSION: No evidence of deep venous thrombosis of the left lower extremity. Reviewed, Interpreted and Dictated by Nadia Anderson MD Transcribed by Lisa Parr Authenticated and [facility]
--- NOTE | 2022-11-05 14:51 | PC.NURSE ---
CV lab staff at for echo
[2022-11-05 15:00] LABS: Basophils # 0.1 K/mm3 (0-0.2); Basophils % 1.5 % (0.1-2.0); Chloride 90 mmol/L (98-107); Eosinophils # 0.2 K/mm3 (0.0-0.4); Eosinophils % 3.3 % (0.1-12.0); Hematocrit 39.9 % (37.0-47.0); Hemoglobin 13.2 g/dL (12.2-16.2); Lymphocytes # 1.6 K/mm3 (0.7-4.5); Lymphocytes % 30.4 % (10-50); Mean Corpuscular HGB Conc 33.1 g/dL (31.8-35.4); Mean Corpuscular Hemoglobin 31.5 pg (27.0-31.2); Mean Corpuscular Volume 95.2 fl (81-99); Mean Platelet Volume 7.1 fl (7.4-10.4); Monocytes # 0.3 K/mm3 (0.1-1.0); Neutrophils # 3.1 K/mm3 (1.8-7.8); Neutrophils % 58.8 % (37.0-80.0); Platelet Count 339 K/mm3 (142-424); Potassium 4.5 mmoL/L (3.5-5.1); Red Blood Count 4.19 M/mm3 (4.20-5.40); Red Cell Distribution Width 12.7 % (11.5-17.5); Sodium 122 mmol/L (136-145); White Blood Count 5.3 K/mm3 (4.8-10.8)
[2022-11-05 15:02] LABS: Alanine Aminotransferase 22 U/L (12-78); Blood Urea Nitrogen 8 mg/dl (7-17); Estimated Glomerular Filt Rate 99 ml/min (>60); GFR (African American) 120 ML/MIN (>60)
[2022-11-05 15:03] LABS: Albumin Level 4.6 g/dl (3.5-5.0); Albumin/Globulin Ratio 1.8 (1.1-1.8); Alkaline Phosphatase 107 U/L (38-126); Anion Gap 11.5 mEq/L (5-15); Aspartate Amino Transferase 26 U/L (14-36); Bilirubin,Total 0.8 mg/dl (0.2-1.3); Calcium 9.1 mg/dl (8.4-10.2); Carbon Dioxide 25 mmol/L (22.0-30.0); Globulin 2.6 g/dL (1.3-3.2); Glucose 107 mg/dl (74-100); Total Protein,Serum 7.2 g/dl (6.3-8.2)
[2022-11-05 15:14] LABS: Creatine Kinase 54 U/L (30-135)
[2022-11-05 15:31] VITALS: BP 155/52; PULSE 55; RESP 18
[2022-11-05 16:25] VITALS: BP 131/48; PULSE 63; RESP 16; TEMP 36.7; O2SAT 99
== END 2022-11-05 16:25 | disposition home or self-care (01) ==
PROVIDERS: Emergency Provider Student in an Organized Health Care Education/Training Program; PCP Family Medicine
DX: M71.22 Synovial cyst of popliteal space [Baker], left knee (principal); M17.12 Unilateral primary osteoarthritis, left knee
CPT/HCPCS: 36415; 71260; 73562; 80048; 80053; 82550; 85025; 93971; 96374; 99285; Q9967

== ENCOUNTER 2022-12-01 16:40 | Inpatient (IN) | payer MEDICARE, OTHER, SELFPAY ==
[2022-12-01 16:41] VITALS: BP 145/61; PULSE 51; RESP 17; TEMP 36.5; O2SAT 99; BMI 30.2
[2022-12-01 16:48] VITALS: BP 145/61
--- NOTE | 2022-12-01 16:48 | ECG_ITS ---
APPROVED REPORT Exam: Resting ECG HR:49 bpm ECG Measurements Heart Rate 49 AXES MI 184 P 63 QRSd 87 QRS 57 QT 406 T 67 QTc 378 Conclusion SINUS BRADYCARDIA WITH SINUS ARRHYTHMIA ST DEVIATION AND MODERATE T-WAVE ABNORMALITY, CONSIDER INFERIOR ISCHEMIA [-0.1+ mV T-WAVE IN II/aVF] ABNORMAL ECG UNCONFIRMED REPORT Electronically signed by : Mariano Velez MD 12/02/2022 20:30:01
--- NOTE | 2022-12-01 16:53 | XR_ITS ---
PROCEDURE INFORMATION: Exam: XR Chest Exam date and time: 12/01/2022 5:18 PM Age: 72 years old Clinical indication: Shortness of breath; Additional info: SOA TECHNIQUE: Imaging protocol: Radiologic exam of the chest. Views: 1 view. COMPARISON: CT CHEST W CON 11/05/2022 1:27 PM and chest x-ray 01/19/2021 FINDINGS: Lungs: Mild discoid atelectasis versus scarring in both lung bases similar to previous. Lungs are otherwise clear. Pleural spaces: Unremarkable. No pleural effusion. No pneumothorax. Heart/Mediastinum: Unremarkable. No cardiomegaly. Bones/joints: Unremarkable. IMPRESSION: Stable chest x-ray with no acute disease.
--- NOTE | 2022-12-01 16:54 | HMH.EDGENADL ---
Discharge Plan Disposition Patient Disposition: Admitted As Inpatient Chief Complaint: Upper Respiratory Infection Prescriptions Prescriptions: No Action oxcarbazepine 600 mg tablet 600 mg PO BID Label Comments: TAKE ONE TABLET BY MOUTH TWICE DAILY mirtazapine 15 mg tablet 15 mg PO HS furosemide 40 mg tablet 40 mg PO DAILY Qty: 90 3RF rivaroxaban 2.5 mg tablet 2.5 mg PO BID Qty: 180 3RF escitalopram oxalate [Lexapro] 10 mg tablet 10 mg PO DAILY clobetasol 15 GM cream 1 applic TOPICAL BID atorvastatin 40 mg tablet See Rx Instructions .ROUTE .COMPLEX Rx Instructions: TAKE ONE TABLET BY MOUTH EVERY DAY AT BEDTIME FOR high cholesterol carvedilol [Coreg] 6.25 mg tablet 6.25 mg PO BID Rx Instructions: must administer with a meal/food amlodipine 10 mg tablet See Rx Instructions .ROUTE .COMPLEX Rx Instructions: TAKE ONE TABLET BY MOUTH DAILY FOR high blood pressure losartan 100 mg tablet 100 mg PO DAILY aspirin 81 MG tablet,delayed release (DR/EC) 81 mg PO DAILY Referrals Follow up/Referrals: Darby Mcclendon PA [Primary Care Provider] - See instructions Clinical Impressions Clinical Impression: Acute hyponatremia Discharge ED Provider: Erik Sr General Adult HPI General Chief complaint: Upper Respiratory Infection Stated complaint: weakness, Time Seen by Provider: 12/01/22 17:00 Description of Symptoms (Recalled from ER Triage Doc. by RN): 72-year-old female History of Present Illness HPI narrative: 72-year-old female presents with generalized weakness. She says she has had a sore throat and ear congestion for the last few days as well. No cough chest pain or shortness of air. She has generalized weakness and fatigue for the last few months. She has had her labs drawn over the last month and has had a downtrending sodium as well. Unsure of an etiology at this time. Related Data Home Medications Medication Instructions Recorded Confirmed mirtazapine 15 mg tablet 15 mg PO HS antidepressant 01/07/21 12/01/22 aspirin 81 mg tablet,delayed 81 mg PO DAILY ANTICOUGULANT 01/19/21 12/01/22 release clobetasol 0.05 % topical cream 1 applic topical BID . 09/16/21 12/01/22 oxcarbazepine 600 mg tablet 600 mg PO BID mood 06/02/22 12/01/22 amlodipine 10 mg tablet See Rx Instructions .Route 11/05/22 12/01/22 .COMPLEX High blood pressure atorvastatin 40 mg tablet See Rx Instructions .Route 11/05/22 12/01/22 .COMPLEX Cholesterol carvedilol 6.25 mg tablet (Coreg) 6.25 mg PO BID High blood pressure 11/05/22 12/01/22 losartan 100 mg tablet 100 mg PO DAILY High blood pressure 11/05/22 12/01/22 escitalopram oxalate 10 mg tablet 10 mg PO DAILY 12/01/22 12/01/22 (Lexapro) Previous Rx's Medication Instructions Recorded furosemide 40 mg tablet 40 mg PO DAILY Fluid #90 tabs 05/20/22 rivaroxaban 2.5 mg tablet 2.5 mg PO BID ANTICOUGULANT #180 05/20/22 tabs Allergies Allergy/AdvReac Type Severity Reaction Status Date / Time Sulfa (Sulfonamide Allergy Intermediate Rash Verified 12/01/22 16:02 Antibiotics) diazepam Allergy Unknown Unknown Verified 12/01/22 16:02 allergy reaction sulfacetamide Allergy Unknown Unknown Verified 12/01/22 16:02 allergy reaction [facility] Disclaimer: The information contained in this section may have been updated after the patient was seen, as this information can be updated by other users. Medical History Edema Numbness of both lower extremities PAD (peripheral artery disease) Right carotid bruit Social History Smoking Status: Former smoker pack-years: 10 second hand exposure: No alcohol intake: current substance use type: denies use current occupational status: retired and disabled Travel in the last 8 weeks: None household memb
[2022-12-01 17:00] VITALS: BP 127/58
[2022-12-01 17:08] LABS: Coronavirus 19, PCR Not Detected (NotDetected); Influenza A, PCR Not Detected (NotDetected); Influenza B, PCR Not Detected (NotDetected)
[2022-12-01 17:14] LABS: Chloride 89 mmol/L (98-107)
[2022-12-01 17:15] LABS: Potassium 4.1 mmoL/L (3.5-5.1); Sodium 121 mmol/L (136-145)
[2022-12-01 17:17] LABS: Alanine Aminotransferase 22 U/L (12-78); Alkaline Phosphatase 93 U/L (38-126); Aspartate Amino Transferase 32 U/L (14-36); Basophils % 0.6 % (0.1-2.0); Bilirubin,Total 0.6 mg/dl (0.2-1.3); Blood Urea Nitrogen 17 mg/dl (7-17); Creatinine Clearance Estimated 81 mL/min (50-200); Eosinophils # 0.1 K/mm3 (0.0-0.4); Eosinophils % 1.4 % (0.1-12.0); Estimated Glomerular Filt Rate 71 ml/min (>60); GFR (African American) 86 ML/MIN (>60); Hematocrit 37.9 % (37.0-47.0); Hemoglobin 12.9 g/dL (12.2-16.2); Lymphocytes # 1.6 K/mm3 (0.7-4.5); Lymphocytes % 23.8 % (10-50); Mean Corpuscular HGB Conc 34.1 g/dL (31.8-35.4); Mean Corpuscular Hemoglobin 31.6 pg (27.0-31.2); Mean Corpuscular Volume 92.7 fl (81-99); Mean Platelet Volume 7.2 fl (7.4-10.4); Monocytes # 0.5 K/mm3 (0.1-1.0); Monocytes % 7.4 % (1.7-9.3); Neutrophils # 4.5 K/mm3 (1.8-7.8); Neutrophils % 66.8 % (37.0-80.0); Platelet Count 310 K/mm3 (142-424); Red Cell Distribution Width 12.9 % (11.5-17.5); White Blood Count 6.7 K/mm3 (4.8-10.8)
[2022-12-01 17:18] LABS: Albumin Level 4.1 g/dl (3.5-5.0); Albumin/Globulin Ratio 1.7 (1.1-1.8); Anion Gap 13.1 mEq/L (5-15); Calcium 8.7 mg/dl (8.4-10.2); Carbon Dioxide 23 mmol/L (22.0-30.0); Globulin 2.4 g/dL (1.3-3.2); Glucose 103 mg/dl (74-100); Magnesium 1.8 mg/dl (1.6-2.3); Total Protein,Serum 6.5 g/dl (6.3-8.2)
[2022-12-01 17:30] VITALS: BP 126/55; PULSE 51; O2SAT 98
[2022-12-01 17:42] LABS: Strep Scrn Group A (Rapid) Negative (Negative)
--- NOTE | 2022-12-01 18:22 | PC.NURSE ---
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
[2022-12-01 19:10] VITALS: BP 145/67; PULSE 80; RESP 17; TEMP 36.6; O2SAT 98
[2022-12-01 19:25] LABS: Microscopic, Urine URINE MICROSCOPIC (MICROSCOPIC)
--- NOTE | 2022-12-01 19:26 | PC.NURSE ---
pt back from the restroom, she was able to provide a urine sample and this was submitted to Lab. Updated pt on report and admission status.
--- NOTE | 2022-12-01 19:26 | PC.NURSE ---
Attempted to call report. Nurse asked me to call back
--- NOTE | 2022-12-01 19:32 | PC.NURSE ---
Lui the hospitalist in room talking with patient.
--- NOTE | 2022-12-01 19:35 | PC.NURSE ---
Report to NEREYDA Cummings
--- NOTE | 2022-12-01 19:39 | EXP.HP ---
History of Present Illness *Admission Date: 12/01/22 *Reason for visit:: Cough, sore throat, ear pain, fatigue *History of present illness: Ms. Kimball is a 72-year-old female with a past medical history of PAD on chronic anticoagulation, HTN, Anxiety Disorder, Hyperlipidemia. She presents to [facility] due to sore throat, non-productive cough, generalized weakness and feeling of confusion. She reports her symptoms have been going on for months, but has worsened over the last few days. In the ER, the patient underwent a Cxray that showed no acute cardiopulmonary findings, Covid and Flu testing were negative. Group A strep testing was negative. CBC was unremarkable. CMP showed a Sodium level of 121, patient's most recent sodium level has ran 132>123>122. The patient reports that she has been following up for a lung nodule with her PCP and her most recent CAT scan showed that her pulmonary nodule was stable. This was reviewed, the testing was performed in 10/2022 and the nodule is 5 mm in the left lower lobe. The patient will be admitted with initial impression: Hyponatremia. [facility] Disclaimer: The information contained in this section may have been updated after the patient was seen, as this information can be updated by other users. Medical History Edema Numbness of both lower extremities PAD (peripheral artery disease) Right carotid bruit Social History (Updated 12/01/22 @ 20:00 by Ye Ward RN) Smoking Status: Former smoker pack-years: 10 second hand exposure: No alcohol intake: current substance use type: denies use current occupational status: retired and disabled Travel in the last 8 weeks: None household members: none housing: house caffeine: Yes Review of Systems Review of Systems Review of systems:: pertinent systems reviewed and negative unless documented below Constitutional Constitutional: Reports system reviewed and no additional complaints, except as documented Eyes Eyes: Reports system reviewed and no additional complaints, except as documented ENT Ears, Nose, Mouth, and Throat: Reports post nasal drip, Reports sinus pressure and Reports sore throat *Cardiovascular Cardiovascular: Reports system reviewed and no additional complaints, except as documented *Respiratory Respiratory: Reports cough *Gastrointestinal Gastrointestinal: Reports system reviewed and no additional complaints, except as documented *Genitourinary Genitourinary: Reports system reviewed and no additional complaints, except as documented *Musculoskeletal Musculoskeletal: Reports system reviewed and no additional complaints, except as documented Integumentary/Breasts Skin/Breast: Reports system reviewed and no additional complaints, except as documented *Neurologic Neurologic: Reports system reviewed and no additional complaints, except as documented Psychiatric Psychiatric: Reports system reviewed and no additional complaints, except as documented Endocrine Endocrine: Reports system reviewed and no additional complaints, except as documented Hematologic/Lymphatic Hematologic/Lymphatic: Reports system reviewed and no additional complaints, except as documented Allergic/Immunologic Allergic/Immunologic: Reports system reviewed and no additional complaints, except as documented Meds Home Medications and Allergies Home Medications Medication Instructions Recorded Confirmed Type amlodipine 10 mg tablet 10 mg PO DAILY High blood pressure 12/01/22 12/01/22 History atorvastatin 40 mg tablet 40 mg PO HS Cholesterol 12/01/22 12/02/22 History bupropion HCl 150 mg tablet,12 hr 150 mg PO DAILY Mood 12/01/22 12/01/22 History sustained-release carvedilol 6.25 mg tablet 6.25 mg PO BID Heart rhythm 12/01/22 12/01/22 History escitalopram oxalate 10 mg tablet 10 mg PO DAILY Mood 12/01/22 12/01/22 History lorazepam 0.5 mg tablet 0.5 mg PO TIDP PRN
[2022-12-01 19:59] LABS: Appearance,Urine CLEAR (Clear); Bilirubin,Urine Negative (Negative); Blood, Urine Negative (Negative); Color,Urine YELLOW (Yellow); Glucose,Urine (UA) Negative (Negative); Ketones,Urine Negative (Negative); Leukocyte Esterase,Urine Negative (Negative); Nitrate,Urine Negative (Negative); Protein,Urine Negative (Negative); Specific Gravity, Urine <= 1.005 (1.005-1.030); Urobilinogen,Urine 0.2 EU/dl (0.2)
[2022-12-01 20:00] VITALS: BP 150/70; PULSE 98; RESP 18; TEMP 36.5; O2SAT 97; O2SAT 98; BMI 30.8
[2022-12-01 20:27] LABS: Squamous Epithelial Cell,Urine Occasional #/hpf (0-5); WBC,Urine Occasional #/hpf (0-3)
--- NOTE | 2022-12-01 21:13 | PC.NURSE ---
pt arrived via wheelchair @ 19:47
[2022-12-01 22:52] LABS: Chloride 92 mmol/L (98-107)
[2022-12-01 22:53] LABS: Potassium 3.8 mmoL/L (3.5-5.1); Sodium 123 mmol/L (136-145)
[2022-12-01 22:55] LABS: Blood Urea Nitrogen 13 mg/dl (7-17); Creatinine Clearance Estimated 83 mL/min (50-200); Estimated Glomerular Filt Rate 99 ml/min (>60); GFR (African American) 120 ML/MIN (>60)
[2022-12-01 22:56] LABS: Anion Gap 7.8 mEq/L (5-15); Calcium 8.2 mg/dl (8.4-10.2); Carbon Dioxide 27 mmol/L (22.0-30.0); Glucose 110 mg/dl (74-100)
[2022-12-02] VITALS: BP 142/78; PULSE 50; RESP 18; TEMP 36.5; O2SAT 98
[2022-12-02 04:00] VITALS: BP 141/64; PULSE 47; RESP 18; TEMP 36.5; O2SAT 99; BMI 31.2
--- NOTE | 2022-12-02 04:05 | PC.NURSE ---
Pt. is aox4, up stand by assist, 22 g left hand with ns @ 100, regular diet, meds are locked up in her room.
[2022-12-02 06:20] LABS: Basophils % 0.6 % (0.1-2.0); Eosinophils # 0.2 K/mm3 (0.0-0.4); Eosinophils % 4.4 % (0.1-12.0); Hematocrit 35.8 % (37.0-47.0); Hemoglobin 11.8 g/dL (12.2-16.2); Lymphocytes # 1.9 K/mm3 (0.7-4.5); Lymphocytes % 40.5 % (10-50); Mean Corpuscular HGB Conc 33.1 g/dL (31.8-35.4); Mean Corpuscular Hemoglobin 31.3 pg (27.0-31.2); Mean Corpuscular Volume 94.5 fl (81-99); Mean Platelet Volume 7.2 fl (7.4-10.4); Monocytes # 0.4 K/mm3 (0.1-1.0); Monocytes % 8.9 % (1.7-9.3); Neutrophils # 2.1 K/mm3 (1.8-7.8); Neutrophils % 45.5 % (37.0-80.0); Platelet Count 258 K/mm3 (142-424); Red Blood Count 3.79 M/mm3 (4.20-5.40); Red Cell Distribution Width 12.8 % (11.5-17.5); White Blood Count 4.7 K/mm3 (4.8-10.8)
--- NOTE | 2022-12-02 06:23 | EXP.ACUTE.PN ---
Subjective *Date: 12/02/22 *Time: 16:14 Interval history: Patient did well overnight. No seizure activity. Tolerating IV fluids. Tolerating p.o. intake today. Mood stable. States she takes oxcarbazepine for bipolar/ refractory depression. Worried about her cough. No shortness of breath. Previous smoker. No wheeze on exam or oxygen requirement. Afebrile overnight Medical Exam Vital signs and Labs for Last 24 Hours: Vital Signs Temp Pulse Pulse Resp BP BP Pulse Ox 12/02/22 04:00 97.7 F 47 L 18 141/64 H 99 12/02/22 00:00 97.7 F 50 L 18 142/78 H 98 12/01/22 20:00 97.7 F 98 H 18 150/70 H 97 12/01/22 20:00 98 12/01/22 19:10 97.9 F 80 17 145/67 H 12/01/22 17:30 51 L 126/55 L 98 12/01/22 17:00 127/58 L 12/01/22 16:48 145/61 H 12/01/22 16:41 97.7 F 51 L 17 145/61 H 99 Intake and Output 12/01/22 12/01/22 12/02/22 15:59 23:59 07:59 Intake Total 1000 / 1000 700 / 700 Output Total 400 / 400 Balance 1000 / 1000 300 / 300 Intake: Intake, Total IV Amount 1000 / 1000 700 / 700 0.9 % Sodium Chloride 1000ML 1, 700 / 700 000 ml @ 100 mls/hr IV .Q10H [facility] Rx#:[id number] Output: Output, Urine Amount 400 / 400 Other: Number of Unmeasured Voids 0 Weight 99.989 kg 101.264 kg Patient Weight 12/02/22 23:59 Weight 101.264 kg Laboratory Results - last 24 hr 12/01/22 16:57: Group A Strep Rapid Negative 12/01/22 16:57: SARS-CoV-2 (PCR) Not detected, Influenza A Untype (PCR) Not detected, Influenza Type B (PCR) Not detected 12/01/22 16:59: WBC 6.7, RBC 4.10 L, Hgb 12.9, Hct 37.9, MCV 92.7, MCH 31.6 H, MCHC 34.1, RDW 12.9, Plt Count 310, MPV 7.2 L, Neut % (Auto) 66.8, Lymph % (Auto) 23.8, Cook % (Auto) 7.4, Eos % (Auto) 1.4, Baso % (Auto) 0.6, Neut # (Auto) 4.5, Lymph # (Auto) 1.6, Cook # (Auto) 0.5, Eos # (Auto) 0.1, Baso # (Auto) 0.0 12/01/22 16:59: Sodium 121 L, Potassium 4.1, Chloride 89 L, Carbon Dioxide 23, Anion Gap 13.1, BUN 17, Creatinine 0.80, Estimated Creat Clear 81, Estimated GFR 71, Est GFR ( Amer) 86, Glucose 103 H, Calcium 8.7, Magnesium 1.8, Total Bilirubin 0.6, AST 32, ALT 22, Alkaline Phosphatase 93, Total Protein 6.5, Albumin 4.1, Globulin 2.4, Albumin/Globulin Ratio 1.7 12/01/22 19:20: Urine Color Yellow, Urine Appearance Clear, Urine pH 6.0, Ur Specific [place] <= 1.005, Urine Protein Negative, Urine Glucose (UA) Negative, Urine Ketones Negative, Urine Blood Negative, Urine Nitrate Negative, Urine Bilirubin Negative, Urine Urobilinogen 0.2, Ur Leukocyte Esterase Negative, Urine RBC None, Urine WBC Occasional, Ur Squamous Epith Cells Occasional, Urine Bacteria None 12/01/22 22:40: Sodium 123 L, Potassium 3.8, Chloride 92 L, Carbon Dioxide 27, Anion Gap 7.8, BUN 13, Creatinine 0.60 D, Estimated Creat Clear 83, Estimated GFR 99, Est GFR ( Amer) 120 D, Glucose 110 H, Calcium 8.2 L I & O for Labs for Last 24 Hours: Intake & Output 11/29/22 11/30/22 12/01/22 12/02/22 23:59 23:59 23:59 23:59 Intake Total 1000 / 1000 700 / 700 Output Total 400 / 400 Balance 1000 / 1000 300 / 300 Weight 99.989 kg 101.264 kg Constitutional: Present no acute distress and obese Head: Present atraumatic and normocephalic ENT: Present normal exam Neck: Present normal inspection Respiratory: Present CTA bilaterally and normal respiratory effort; Absent accessory muscle use, rhonchi, wheezes or crackles Comment:: Minimal dry cough Cardiac: Present Reg Rate and Rhythm GI: Present normal bowel sounds; Absent tenderness Extremities: Present normal inspection and full ROM Skin: Present intact; Absent erythema Neuro: Present Grossly Intact, alert, awake and moves all extremities Comment:: Slow to respond to questions. Word finding difficulty. No tremor Assessment and Plan *Assessment and plan (1) Hyponatremia: Status: Acute Category: Medical Code(s): E87.1 - Hypo-osmolality and hyponat
[2022-12-02 06:30] LABS: Chloride 94 mmol/L (98-107); Sodium 123 mmol/L (136-145)
[2022-12-02 06:32] LABS: Blood Urea Nitrogen 7 mg/dl (7-17); Creatinine Clearance Estimated 84 mL/min (50-200); Estimated Glomerular Filt Rate 158 ml/min (>60); GFR (African American) 191 ML/MIN (>60)
[2022-12-02 06:33] LABS: Alanine Aminotransferase 19 U/L (12-78); Albumin Level 3.3 g/dl (3.5-5.0); Albumin/Globulin Ratio 1.5 (1.1-1.8); Alkaline Phosphatase 89 U/L (38-126); Aspartate Amino Transferase 23 U/L (14-36); Bilirubin,Total 0.3 mg/dl (0.2-1.3); Carbon Dioxide 25 mmol/L (22.0-30.0); Globulin 2.2 g/dL (1.3-3.2); Glucose 91 mg/dl (74-100); Phosphorous 3.7 mg/dl (2.5-4.5); Total Protein,Serum 5.5 g/dl (6.3-8.2)
[2022-12-02 06:34] LABS: Magnesium 1.9 mg/dl (1.6-2.3)
[2022-12-02 08:00] VITALS: BP 127/51; PULSE 51; RESP 18; TEMP 36.4; O2SAT 99
[2022-12-02 11:32] VITALS: BMI 31.2
--- NOTE | 2022-12-02 15:19 | PC.NURSE ---
A&OX4. TOLERATING RA WELL. PT HAS HAD NO NEEDS OR C/O THUS FAR. HAS BEEN RESTING IN BED. TOLERATING DIET. FLUIDS STOPPED PER VENTURA AT THIS TIME, PT ON STRICT I&O, NO MORE THAN 1000ML INTAKE PER DAY (SIGN ON DOOR). PT DOES EXPRESS BEING DEPRESSED AND STRUGGLING WITH PTSD AT THIS TIME FROM SOME THINGS THAT HAVE HAPPENED IN HER PERSONAL LIFE. VSS.
[2022-12-02 15:22] VITALS: BP 142/71; PULSE 66; RESP 18; TEMP 36.4; O2SAT 98
[2022-12-02 17:07] LABS: Chloride 97 mmol/L (98-107); Potassium 4.3 mmoL/L (3.5-5.1); Sodium 125 mmol/L (136-145)
[2022-12-02 17:10] LABS: Blood Urea Nitrogen 10 mg/dl (7-17); Creatinine Clearance Estimated 84 mL/min (50-200); Estimated Glomerular Filt Rate 122 ml/min (>60); GFR (African American) 148 ML/MIN (>60)
[2022-12-02 17:11] LABS: Anion Gap 9.3 mEq/L (5-15); Carbon Dioxide 23 mmol/L (22.0-30.0); Glucose 92 mg/dl (74-100)
--- NOTE | 2022-12-02 17:26 | PC.NURSE ---
PT HAS REPORTED HEADACHE X2 THIS SHIFT, TX PER OCT.
[2022-12-02 20:00] VITALS: BP 120/65; PULSE 54; RESP 18; TEMP 36.7; O2SAT 96
[2022-12-02 22:06] LABS: Chloride 99 mmol/L (98-107)
[2022-12-02 22:07] LABS: Potassium 4.2 mmoL/L (3.5-5.1); Sodium 127 mmol/L (136-145)
[2022-12-02 22:09] LABS: Blood Urea Nitrogen 11 mg/dl (7-17); Creatinine Clearance Estimated 84 mL/min (50-200); Estimated Glomerular Filt Rate 122 ml/min (>60); GFR (African American) 148 ML/MIN (>60)
[2022-12-02 22:10] LABS: Anion Gap 8.2 mEq/L (5-15); Calcium 8.1 mg/dl (8.4-10.2); Carbon Dioxide 24 mmol/L (22.0-30.0); Glucose 102 mg/dl (74-100)
[2022-12-03 04:00] VITALS: BP 142/77; PULSE 46; RESP 18; TEMP 37.1; O2SAT 97; BMI 31.1
--- NOTE | 2022-12-03 05:08 | PC.NURSE ---
Pt has been medicated PRN per OCT for anxiety and headache this shift. Pt has had no other complaints. Strict I's and O's monitored this shift. Pt ambulates to independently. 22G IV in left hand saline locked. Home medications in omni.
[2022-12-03 06:24] LABS: Basophils # 0.1 K/mm3 (0-0.2); Eosinophils # 0.2 K/mm3 (0.0-0.4); Eosinophils % 5.1 % (0.1-12.0); Hematocrit 36.1 % (37.0-47.0); Hemoglobin 12.2 g/dL (12.2-16.2); Lymphocytes # 1.7 K/mm3 (0.7-4.5); Lymphocytes % 35.8 % (10-50); Mean Corpuscular HGB Conc 33.7 g/dL (31.8-35.4); Mean Corpuscular Hemoglobin 31.7 pg (27.0-31.2); Mean Platelet Volume 7.2 fl (7.4-10.4); Monocytes # 0.4 K/mm3 (0.1-1.0); Neutrophils # 2.3 K/mm3 (1.8-7.8); Neutrophils % 49.2 % (37.0-80.0); Platelet Count 272 K/mm3 (142-424); Red Blood Count 3.84 M/mm3 (4.20-5.40); Red Cell Distribution Width 13.1 % (11.5-17.5); White Blood Count 4.7 K/mm3 (4.8-10.8)
[2022-12-03 06:26] LABS: Chloride 102 mmol/L (98-107); Potassium 4.1 mmoL/L (3.5-5.1); Sodium 132 mmol/L (136-145)
[2022-12-03 06:28] LABS: Alanine Aminotransferase 19 U/L (12-78); Aspartate Amino Transferase 21 U/L (14-36); Blood Urea Nitrogen 6 mg/dl (7-17); Creatinine Clearance Estimated 83 mL/min (50-200); Estimated Glomerular Filt Rate 158 ml/min (>60); GFR (African American) 191 ML/MIN (>60)
[2022-12-03 06:29] LABS: Albumin Level 3.4 g/dl (3.5-5.0); Albumin/Globulin Ratio 1.6 (1.1-1.8); Alkaline Phosphatase 80 U/L (38-126); Anion Gap 9.1 mEq/L (5-15); Bilirubin,Total 0.3 mg/dl (0.2-1.3); Calcium 8.4 mg/dl (8.4-10.2); Carbon Dioxide 25 mmol/L (22.0-30.0); Globulin 2.1 g/dL (1.3-3.2); Glucose 90 mg/dl (74-100); Magnesium 2.1 mg/dl (1.6-2.3); Total Protein,Serum 5.5 g/dl (6.3-8.2)
--- NOTE | 2022-12-03 07:28 | EXP.DC.SUM ---
General Admission date:: 12/01/22 Discharge date: 12/03/22 HPI HPI HPI: Ms. Kimball is a 72-year-old female with a past medical history of PAD on chronic anticoagulation, HTN, Anxiety Disorder, Hyperlipidemia. She presents to [facility] due to sore throat, non-productive cough, generalized weakness and feeling of confusion. She reports her symptoms have been going on for months, but has worsened over the last few days. In the ER, the patient underwent a Cxray that showed no acute cardiopulmonary findings, Covid and Flu testing were negative. Group A strep testing was negative. CBC was unremarkable. CMP showed a Sodium level of 121, patient's most recent sodium level has ran 132>123>122. The patient reports that she has been following up for a lung nodule with her PCP and her most recent CAT scan showed that her pulmonary nodule was stable. This was reviewed, the testing was performed in 10/2022 and the nodule is 5 mm in the left lower lobe. The patient will be admitted with initial impression: Hyponatremia. Hospital Course Hospital Course Hospital Course: 72-year-old female with past medical history of PAD, HTN, Hyperlipidemia and Anxiety Disorder presents due to sore throat, ear pain, generalized weakness and confusion - Hyponatremia Appears slightly hypovolemic on admission. Had confusion, difficulty with word recall and answering questions on presentation. Monitor closely. Initially repleted sodium with normal saline overnight at first day of admission. Subsequently restricted fluid given concern for SIADH secondary to her medication. Has done well with fluid restriction of 1 L daily. Sodium improved from 121 on admission to 132 on day of discharge. Neurologic symptoms resolved. Patient appears at baseline function, speaking normally, good thought process, quick to answer questions. States she feels less slow and confused. Of note, urine sodium was ordered on admission. Still pending at this time as it is a send out lab. - PAD: Continue Statin, Xarelto - Hypertension: Continue Coreg, Amlodipine, Irbesartan - Hyperlipidemia: Continue home statin - Anxiety Disorder Longstanding anxiety and depression. Follows with a psychiatrist via telehealth. Has been on oxcarbazepine with good results. Concerned that this however is underlying her SIADH/hyponatremia. Discussed resuming oxcarbazepine at a low dose with patient. Will resume 300 mg twice daily. Additionally patient is on escitalopram 10 mg. This was started 3 weeks ago and she is tolerating well. Would recommend increasing to 20 mg daily. Attempting to reach out to her psychiatrist Dr. Joshi to discuss changes. Mood stable during hospitalization. Medically stable for discharge home. Sodium correcting nicely. Needs repeat labs in a week to monitor improvement. Recommend follow-up with PCP for further discussion. Patient has close follow-up via telehealth with her psychiatrist. Exam Data for Last 24 hours Vital signs and Labs for Last 24 Hours: Temp Pulse Resp BP Pulse Ox 98.8 F 46 L 18 142/77 H 97 12/03/22 04:00 12/03/22 04:00 12/03/22 04:00 12/03/22 04:00 12/03/22 04:00 Laboratory Results - last 24 hr 12/02/22 16:30: Sodium 125 L, Potassium 4.3, Chloride 97 L, Carbon Dioxide 23, Anion Gap 9.3, BUN 10 D, Creatinine 0.50 L D, Estimated Creat Clear 84, Estimated GFR 122, Est GFR ( Amer) 148 D, Glucose 92, Calcium 8.0 L 12/02/22 21:57: Sodium 127 L, Potassium 4.2, Chloride 99, Carbon Dioxide 24, Anion Gap 8.2, BUN 11, Creatinine 0.50 L, Estimated Creat Clear 84, Estimated GFR 122, Est GFR ( Amer) 148, Glucose 102 H, Calcium 8.1 L 12/03/22 05:53: WBC 4.7 L, RBC 3.84 L, Hgb 12.2, Hct 36.1 L, MCV 94.0, MCH 31.7 H, MCHC 33.7, RDW 13.1, Plt Count 272, MPV 7.2 L, Neut % (Auto) 49.2, Lymph % (Auto) 35.8, Wallace % (Auto) 9.0, Eos % (Auto) 5.1, Baso % (Auto) 1.0, Neut # (Auto) 2.3, Lymph # (Auto) 1.7, Wallace # (Auto) 0.4, Eos #
[2022-12-03 07:58] VITALS: BP 160/79; PULSE 56; RESP 18; TEMP 36.4; O2SAT 100
--- NOTE | 2022-12-03 11:22 | HMH.PHAINT1 ---
Pharmacy Intervention Comments: Counseled patient on one medication dose CHANGE (oxcarbazepine) and one medication to STOP (bupropion) at discharge. Patient expressed understanding of therapy changes.
[2022-12-03 11:52] LABS: Sodium, Urine 46 mmol/L (Not Estab.)
--- NOTE | 2022-12-03 12:16 | PC.NURSE ---
home meds from omni and med drawer returned to patient; outpatient cbc order given to patient with dc instructions;
--- NOTE | 2022-12-04 13:49 | CARE MANAGER ---
Contacted patient related to hospital discharge. She states she is doing well and is aware of follow up appointment. NEREYDA Nieto
== END 2022-12-03 13:44 | disposition home or self-care (01) | DRG 641 ==
LOC: ER 17:55 → 2ND 12-02 00:28
PROVIDERS: Nurse Practitioner Family; Admitting Provider Internal Medicine Adolescent Medicine; Emergency Provider Emergency Medicine; PCP Physician Assistant; Visit Provider Internal Medicine Adolescent Medicine
DX: E87.1 Hypo-osmolality and hyponatremia (principal); I10 Essential (primary) hypertension; E78.5 Hyperlipidemia, unspecified; F41.9 Anxiety disorder, unspecified; Z87.891 Personal history of nicotine dependence; Z79.899 Other long term (current) drug therapy; Z79.01 Long term (current) use of anticoagulants; I70.203 Unspecified atherosclerosis of native arteries of extremities, bilateral legs
CPT/HCPCS: 36415; 71045; 80048; 80053; 81001; 83735; 84100; 84300; 85025; 87430; 93005; 99285; C9803; U0003; U0005

== ENCOUNTER → 2022-12-11 10:04 | Outpatient (CLI) | payer MEDICARE, OTHER, SELFPAY ==
[2022-12-11 10:58] LABS: Chloride 94 mmol/L (98-107); Sodium 134 mmol/L (136-145)
[2022-12-11 11:01] LABS: Alanine Aminotransferase 33 U/L (12-78); Albumin Level 4.5 g/dl (3.5-5.0); Albumin/Globulin Ratio 2.3 (1.1-1.8); Alkaline Phosphatase 98 U/L (38-126); Aspartate Amino Transferase 35 U/L (14-36); Bilirubin,Total 0.6 mg/dl (0.2-1.3); Blood Urea Nitrogen 9 mg/dl (7-17); Calcium 8.9 mg/dl (8.4-10.2); Carbon Dioxide 29 mmol/L (22.0-30.0); Estimated Glomerular Filt Rate 99 ml/min (>60); GFR (African American) 120 ML/MIN (>60); Glucose 113 mg/dl (74-100); Total Protein,Serum 6.5 g/dl (6.3-8.2)
[2022-12-11 12:58] LABS: Basophils % 0.7 % (0.1-2.0); Eosinophils # 0.2 K/mm3 (0.0-0.4); Eosinophils % 2.8 % (0.1-12.0); Hematocrit 41.2 % (37.0-47.0); Hemoglobin 13.2 g/dL (12.2-16.2); Lymphocytes # 1.2 K/mm3 (0.7-4.5); Lymphocytes % 22.5 % (10-50); Mean Corpuscular HGB Conc 32.1 g/dL (31.8-35.4); Mean Corpuscular Hemoglobin 31.4 pg (27.0-31.2); Mean Corpuscular Volume 97.8 fl (81-99); Mean Platelet Volume 7.9 fl (7.4-10.4); Monocytes # 0.2 K/mm3 (0.1-1.0); Monocytes % 4.2 % (1.7-9.3); Neutrophils # 3.7 K/mm3 (1.8-7.8); Neutrophils % 69.8 % (37.0-80.0); Platelet Count 338 K/mm3 (142-424); Red Blood Count 4.21 M/mm3 (4.20-5.40); Red Cell Distribution Width 13.1 % (11.5-17.5); White Blood Count 5.2 K/mm3 (4.8-10.8)
== END ==
PROVIDERS: PCP Family Medicine; Visit Provider Internal Medicine Adolescent Medicine
DX: E87.1 Hypo-osmolality and hyponatremia (principal); I70.202 Unspecified atherosclerosis of native arteries of extremities, left leg
CPT/HCPCS: 36415; 80053; 85025

== ENCOUNTER → 2022-12-29 11:49 | Outpatient (CLI) | payer MEDICARE, OTHER, SELFPAY ==
[2022-12-29 12:21] LABS: Basophils # 0.1 K/mm3 (0-0.2); Basophils % 1.2 % (0.1-2.0); Eosinophils # 0.2 K/mm3 (0.0-0.4); Eosinophils % 3.3 % (0.1-12.0); Hematocrit 41.5 % (37.0-47.0); Hemoglobin 13.3 g/dL (12.2-16.2); Lymphocytes # 1.7 K/mm3 (0.7-4.5); Mean Corpuscular Hemoglobin 31.3 pg (27.0-31.2); Mean Corpuscular Volume 97.9 fl (81-99); Monocytes # 0.4 K/mm3 (0.1-1.0); Monocytes % 7.2 % (1.7-9.3); Neutrophils # 3.4 K/mm3 (1.8-7.8); Neutrophils % 59.4 % (37.0-80.0); Platelet Count 369 K/mm3 (142-424); Red Blood Count 4.24 M/mm3 (4.20-5.40); Red Cell Distribution Width 13.2 % (11.5-17.5); White Blood Count 5.8 K/mm3 (4.8-10.8)
[2022-12-29 12:56] LABS: Alanine Aminotransferase 47 U/L (12-78); Albumin Level 4.6 g/dl (3.5-5.0); Alkaline Phosphatase 123 U/L (38-126); Anion Gap 17.3 mEq/L (5-15); Aspartate Amino Transferase 43 U/L (14-36); Bilirubin,Indirect 0.7 mg/dL (0.0-0.9); Bilirubin,Total 0.7 mg/dl (0.2-1.3); Bilirubin,Unconjugated 0.8 mg/dL (0.0-1.1); Blood Urea Nitrogen 13 mg/dl (7-17); Calcium 9.2 mg/dl (8.4-10.2); Carbon Dioxide 28 mmol/L (22.0-30.0); Chloride 92 mmol/L (98-107); Cholesterol 190 mg/dl (140-200); Estimated Glomerular Filt Rate 99 ml/min (>60); GFR (African American) 120 ML/MIN (>60); Glucose 101 mg/dl (74-100); Magnesium 2.2 mg/dl (1.6-2.3); Potassium 4.3 mmoL/L (3.5-5.1); Sodium 133 mmol/L (136-145); Triglycerides 62 mg/dl (30-150); VLDL Cholesterol 12 mg/dL (0-40)
[2022-12-29 13:03] LABS: HDL Cholesterol 103 mg/dl (40-60)
[2022-12-29 13:07] LABS: Direct LDL Cholesterol 81.84 mg/dL (100-129)
[2022-12-29 13:09] LABS: Free T4 (Free Thyroxine) 0.82 ng/dl (0.78-2.19)
[2022-12-29 13:15] LABS: Chol/HDL Ratio 1.8 (1-3.5)
[2022-12-29 13:24] LABS: Thyroid Stimulating Hormone 1.19 uIU/mL (0.465-4.68)
== END ==
PROVIDERS: PCP Family Medicine; Visit Provider Physician Assistant
DX: E78.2 Mixed hyperlipidemia (principal); I10 Essential (primary) hypertension; I73.9 Peripheral vascular disease, unspecified; R07.9 Chest pain, unspecified
CPT/HCPCS: 36415; 80048; 80061; 80076; 83735; 84439; 84443; 85025

== ENCOUNTER → 2023-01-05 13:25 | Outpatient (CLI) | payer MEDICARE, OTHER, SELFPAY ==
--- NOTE | 2023-01-05 13:25 | CT_ITS ---
FINAL REPORT CLINICAL HISTORY: chest pain, left upper COMPARISON: October 2022 FINDINGS: Axial images were obtained from the lung apex to the mid abdomen by computed tomography after the administration of IV contrast. Coronal reformatted images were obtained. This study was performed with techniques to keep radiation doses as low as reasonably achievable, (ALARA). Individualized dose reduction techniques using automated exposure control or adjustment of mA and/or kV according to the patient's size were employed. There is no axillary adenopathy. There are calcified AP window and subcarinal lymph nodes. There is no hilar or mediastinal adenopathy. Heart size is normal. There is no pericardial or pleural effusion. Limited images of the upper abdomen are unremarkable. There is scarring in the left lung base. No suspicious infiltrate or nodule is identified. IMPRESSION: No acute process. Reviewed, Interpreted and Dictated by Renzo Arteaga MD Transcribed by Sven Craig Authenticated and . [facility]
== END ==
PROVIDERS: PCP Family Medicine; Visit Provider Physician Assistant
DX: E78.2 Mixed hyperlipidemia (principal); I10 Essential (primary) hypertension; I73.9 Peripheral vascular disease, unspecified; R07.9 Chest pain, unspecified
CPT/HCPCS: 71260; Q9967

== ENCOUNTER → 2023-02-18 13:11 | Outpatient (CLI) | payer MEDICARE, OTHER, SELFPAY ==
[2023-02-18 14:02] LABS: Albumin Level 4.2 g/dl (3.5-5.0); Chloride 98 mmol/L (98-107); Potassium 3.8 mmoL/L (3.5-5.1); Sodium 129 mmol/L (136-145)
[2023-02-18 14:05] LABS: Anion Gap 12.8 mEq/L (5-15); Blood Urea Nitrogen 11 mg/dl (7-17); Calcium 9.2 mg/dl (8.4-10.2); Carbon Dioxide 22 mmol/L (22.0-30.0); Estimated Glomerular Filt Rate 83 ml/min (>60); GFR (African American) 100 ML/MIN (>60); Glucose 132 mg/dl (74-100); Phosphorous 3.3 mg/dl (2.5-4.5)
== END ==
PROVIDERS: PCP Nurse Practitioner Family; Visit Provider Nurse Practitioner Family
DX: R10.9 Unspecified abdominal pain (principal)
CPT/HCPCS: 36415; 80069

== ENCOUNTER 2023-02-18 14:00 | Emergency (ER) | payer MEDICARE, OTHER, SELFPAY ==
[2023-02-18 14:00] VITALS: BP 145/84; PULSE 106; RESP 19; TEMP 37.1; O2SAT 97; BMI 35.2
--- NOTE | 2023-02-18 14:12 | CT_ITS ---
FINAL REPORT CLINICAL HISTORY: RLQ pain, concern for appendicitis COMPARISON: 03/07/2021 FINDINGS: CT OF THE ABDOMEN AND PELVIS WITH CONTRAST Axial CT images of the abdomen and pelvis were obtained after the administration of oral and iv contrast. Coronal reformatted images were also obtained and reviewed.This study was performed with techniques to keep radiation doses as low as reasonably achievable (ALARA). Individualized dose reduction techniques using automated exposure control or adjustment of mA and/or kV according to the patient's size were employed. Abdomen: There is mild scarring in the lung bases.. The heart is normal in size. The liver has an unremarkable appearance, without evidence of mass or biliary ductal dilatation. Postcholecystectomy. The spleen is unremarkable. No adrenal mass is present. The pancreas has an unremarkable appearance. The kidneys are normal, without evidence of mass or hydronephrosis. The aorta is normal in caliber. There is no free fluid or adenopathy. No mass or abnormal fluid collection is seen. Pelvis: The appendix normal. The urinary bladder is unremarkable. No inflammatory process is seen. There is no evidence of mass or adenopathy. There is sequential wall thickening of the mid ascending colon with adjacent stranding which may represent localized colitis or neoplasm. There are multiple diverticuli in the sigmoid colon. Post hysterectomy. Postoperative changes in the right SI joint. IMPRESSION: Sequential wall thickening mid ascending colon with adjacent stranding may represent localized colitis or neoplasm. Recommend colonoscopy for further evaluation. Reviewed, Interpreted and Dictated by Jordy Tatum III, MD Transcribed by Kimmy Varma Authenticated and [facility]
[2023-02-18 14:32] LABS: Basophils # 0.1 K/mm3 (0-0.2); Basophils % 0.4 % (0.1-2.0); Eosinophils # 0.2 K/mm3 (0.0-0.4); Hematocrit 46.5 % (37.0-47.0); Hemoglobin 14.6 g/dL (12.2-16.2); Lymphocytes # 1.5 K/mm3 (0.7-4.5); Lymphocytes % 12.5 % (10-50); Mean Corpuscular HGB Conc 31.5 g/dL (31.8-35.4); Mean Corpuscular Hemoglobin 29.7 pg (27.0-31.2); Mean Corpuscular Volume 94.2 fl (81-99); Monocytes # 0.7 K/mm3 (0.1-1.0); Monocytes % 6.1 % (1.7-9.3); Neutrophils # 9.4 K/mm3 (1.8-7.8); Platelet Count 318 K/mm3 (142-424); Red Blood Count 4.93 M/mm3 (4.20-5.40); Red Cell Distribution Width 12.7 % (11.5-17.5); White Blood Count 11.9 K/mm3 (4.8-10.8)
[2023-02-18 14:38] LABS: Chloride 94 mmol/L (98-107); Potassium 3.8 mmoL/L (3.5-5.1); Sodium 130 mmol/L (136-145)
[2023-02-18 14:40] LABS: Blood Urea Nitrogen 12 mg/dl (7-17)
[2023-02-18 14:40] LABS: Microscopic, Urine URINE MICROSCOPIC (MICROSCOPIC)
[2023-02-18 14:41] LABS: Alanine Aminotransferase 175 U/L (12-78); Albumin Level 4.6 g/dl (3.5-5.0); Albumin/Globulin Ratio 1.4 (1.1-1.8); Alkaline Phosphatase 178 U/L (38-126); Anion Gap 12.8 mEq/L (5-15); Aspartate Amino Transferase 216 U/L (14-36); Bilirubin,Total 2.1 mg/dl (0.2-1.3); Calcium 9.7 mg/dl (8.4-10.2); Carbon Dioxide 27 mmol/L (22.0-30.0); Creatinine Clearance Estimated 84 mL/min (50-200); Estimated Glomerular Filt Rate 71 ml/min (>60); GFR (African American) 86 ML/MIN (>60); Globulin 3.4 g/dL (1.3-3.2); Glucose 123 mg/dl (74-100); Lipase 34 U/L (23-300)
[2023-02-18 14:44] LABS: Appearance,Urine SL CLOUDY (Clear); Blood, Urine Negative (Negative); Color,Urine ORANGE (Yellow); Glucose,Urine (UA) Negative (Negative); Ketones,Urine TRACE (Negative); Leukocyte Esterase,Urine TRACE (Negative); Nitrate,Urine Negative (Negative); Protein,Urine 1+ (Negative)
[2023-02-18 15:00] VITALS: BP 117/56; PULSE 88; O2SAT 98
[2023-02-18 15:03] LABS: Bacteria,Urine 1+ /lpf; Bilirubin,Urine 1+ (Negative); WBC,Urine Occasional #/hpf (0-3)
--- NOTE | 2023-02-18 15:41 | PC.NURSE ---
NEW IV STARTED
[2023-02-18 15:54] VITALS: BP 141/73; PULSE 92; O2SAT 99
--- NOTE | 2023-02-18 15:54 | PC.NURSE ---
pt hooked back up to monitor; call king within reach. no other needs at this time
[2023-02-18 16:00] VITALS: BP 114/72; PULSE 76; O2SAT 98
--- NOTE | 2023-02-18 19:28 | HMH.EDGENADL ---
Discharge Plan Disposition Patient Disposition: Home, Self-Care Condition: Good Prescriptions Prescriptions: New prednisone 20 mg tablet 40 mg PO DAILY Qty: 10 0RF No Action atorvastatin 40 mg tablet 40 mg PO HS Patient Comments: TAKE 1 TABLET BY MOUTH AT BEDTIME FOR CHOLESTEROL carvedilol 6.25 mg tablet 6.25 mg PO BID Patient Comments: TAKE 1 TABLET BY MOUTH TWICE A DAY FOR HEART RHYTHM meloxicam 15 mg tablet 15 mg PO DAILYP PRN (Reason: Arthritis) Patient Comments: TAKE 1 TABLET BY MOUTH EVERY DAY NEEDED FOR PAIN (TAKE WITH FOOD) tretinoin [Retin-A] 0.05 % cream 1 applic TOPICAL HS Patient Comments: APPLY TO THE AFFECTED AREA(S) BY TOPICAL ROUTE ONCE DAILY AT BEDTIME lorazepam 0.5 mg tablet 0.5 mg PO TIDP PRN (Reason: Anxiety) Patient Comments: TAKE ONE (1) TABLET BY MOUTH THREE TIMES A DAY NEEDED amlodipine 10 mg tablet 10 mg PO DAILY Patient Comments: TAKE 1 TABLET BY MOUTH EVERY DAY FOR HIGH BLOOD PRESSURE mirtazapine 15 mg tablet 15 mg PO HS Patient Comments: TAKE ONE (1) TABLET BY MOUTH AT BEDTIME losartan 100 mg tablet 100 mg PO DAILY Patient Comments: TAKE 1 TABLET BY MOUTH EVERY DAY FOR HIGH BLOOD PRESSURE escitalopram oxalate 20 mg tablet 20 mg PO DAILY Patient Comments: TAKE ONE (1) TABLET BY MOUTH DAILY Xarelto 2.5 mg tablet 2.5 mg PO BID Patient Comments: TAKE ONE (1) TABLET BY MOUTH TWICE DAILY FOR BLOOD THINNER Referrals Follow up/Referrals: Navneet Champion MD [Primary Care Provider] - See instructions Clinical Impressions Clinical Impression: Colitis Instructions Patient Instructions: DI for Acute Abdominal Pain Discharge ED Provider: Afshin Ko General Adult [facility] General Chief complaint: Abdominal Pain Stated complaint: ABD Pain, phys ref Time Seen by Provider: 02/18/23 17:27 Mode of Arrival: Wheelchair Source of Information: Patient Limitations: No Limitations Description of Symptoms (Recalled from ER Triage Doc. by RN): 72 F presents to our ED from outpatient radiology after her PCP sent her for outpatient lab work and a CT Abd/Pelvis for concerns of appendicitis. Patient had the lab work, but was unable to have the CT scan because her pain became worse. ict help desk technician was able to reach Dr. Champion who advised her to bring patient down to ED for continued work-up. Patient reports increased pain, nausea, and diarrhea. History of Present Illness HPI narrative: 72yo F presents to the ER secondary to concern for appendicitis. Patient was seen by PCP and had blood work completed was actually waiting for outpatient radiology when her pain increased. No fever. Reports pain, nausea, diarrhea. No vomiting. Related Data Home Medications Medication Instructions Recorded Confirmed amlodipine 10 mg tablet 10 mg PO DAILY High Blood Pressure 02/18/23 02/18/23 atorvastatin 40 mg tablet 40 mg PO HS High Cholesterol 02/18/23 02/18/23 carvedilol 6.25 mg tablet 6.25 mg PO BID Heart Rhythm 02/18/23 02/18/23 escitalopram oxalate 20 mg tablet 20 mg PO DAILY Psych 02/18/23 02/18/23 lorazepam 0.5 mg tablet 0.5 mg PO TIDP PRN Anxiety 02/18/23 02/18/23 losartan 100 mg tablet 100 mg PO DAILY High Blood Pressure 02/18/23 02/18/23 meloxicam 15 mg tablet 15 mg PO DAILYP PRN Arthritis 02/18/23 02/18/23 mirtazapine 15 mg tablet 15 mg PO HS Pain 02/18/23 02/18/23 rivaroxaban 2.5 mg tablet (Xarelto) 2.5 mg PO BID Blood Thinner 02/18/23 02/18/23 tretinoin 0.05 % topical cream 1 applic topical HS Skin Condition 02/18/23 02/18/23 (Retin-A) Previous Rx's Medication Instructions Recorded prednisone 20 mg tablet 40 mg PO DAILY #10 tabs 02/18/23 Allergies Allergy/AdvReac Type Severity Reaction Status Date / Time Sulfa (Sulfonamide Allergy Intermediate Rash Verified 01/26/23 15:16 Antibiotics) diazepam Allergy Unknown Unknown Verified 01/26/23 15:16 allergy reactio
[2023-02-18 19:54] VITALS: BP 158/99; PULSE 85; RESP 19; TEMP 36.8; O2SAT 96
== END 2023-02-18 20:50 | disposition home or self-care (01) ==
PROVIDERS: Emergency Provider Family Medicine; PCP Family Medicine
DX: R10.9 Unspecified abdominal pain (principal); R11.0 Nausea; K52.9 Noninfective gastroenteritis and colitis, unspecified; I73.9 Peripheral vascular disease, unspecified
CPT/HCPCS: 36415; 74177; 80053; 80069; 81001; 83690; 85025; 96361; 96374; 96375; 99285; J2405; Q9967

== ENCOUNTER → 2023-03-03 07:56 | Outpatient (CLI) | payer MEDICARE, OTHER, SELFPAY ==
--- NOTE | 2023-03-03 07:59 | US_ITS ---
FINAL REPORT TECHNIQUE: Multiple transverse and longitudinal images CLINICAL HISTORY: ELEVATED LIVER ENZYMES FINDINGS: Patient is status post cholecystectomy. No biliary ductal dilatation is appreciated. No fluid collections are seen. Limited portions of the right liver are unremarkable. Limited portions of the right kidney are unremarkable. IMPRESSION: Status post cholecystectomy, otherwise unremarkable. Reviewed, Interpreted and Dictated by Lauro Suarez MD Transcribed by Lisa Parr Authenticated and [facility]
== END ==
PROVIDERS: PCP Family Medicine; Visit Provider Nurse Practitioner Family
DX: R74.01 Elevation of levels of liver transaminase levels (principal)
CPT/HCPCS: 76705

== ENCOUNTER → 2023-05-06 09:56 | Outpatient (CLI) | payer MEDICARE, OTHER, SELFPAY | PROVIDERS: PCP Family Medicine; Visit Provider Internal Medicine Pulmonary Disease | DX: R06.02 Shortness of breath (principal); R06.09 Other forms of dyspnea; F17.210 Nicotine dependence, cigarettes, uncomplicated | CPT/HCPCS: 94060; 94726; 94729 ==